=== PATIENT | male | born 1975 | race Caucasian/White ===

== ENCOUNTER 2024-02-14 13:40 | Inpatient (IN) | payer BC, SELFPAY ==
[2024-02-14 14:10] VITALS: BP 155/91; PULSE 91; RESP 18; TEMP 36.8; O2SAT 97; BMI 29.0
[2024-02-14 16:50] LABS: Bedside Glucose 168 mg/dL (74-106)
[2024-02-14] MEDS: Insulin Lispro 100 UNIT/ML INSULN.PEN SC ×2 (17:27→21:06)
[2024-02-14] MEDS: metFORMIN (XR) 500 MG Tablet 1000 MG PO (17:27)
[2024-02-14 18:00] VITALS: BP 163/92; PULSE 82; RESP 17; TEMP 36.9; O2SAT 99
--- NOTE | 2024-02-14 19:07 | HP.PCM_ITS ---
HPI - General General Date of Admission: 02/14/24 Date of Service: 02/15/24 Chief Complaint: Here for 3 hours daily rehabilitation. HPI Narrative CHRIS BAILEY, is a 49 Male who presents with followin02/06/2024 [facility] with Neurologic signs and symptoms. Left arm, Left leg weakness. Neurology noted lacunar stroke. Not TPA candidate. 02/06/2024 Admit [facility]. Order MRI brain, CTA head/neck, echo for stroke. PT/OT for RU. Increase Atorvastatin to 40mg qhs. CT brain showed lacunar infarct. Left upper extremity weakness, mild left lower extremity weakness. 02/08/2024 A1c 6.1%. MRI brain showed right parietal lobe infarct. Aspirin, Plavix, Statin, low dose Lovenox. PT/OT SNF. Echo shows patent foramen ovale. ACEI to improve blood pressure. 02/14/2024 Admit to [facility] with debility, here for 3 hours daily rehabilitation, strenghening, prior to discharge home with . [facility] Medical History (Updated 02/14/24 @ 19:[address] Giovanny Pérez MD) Diabetes mellitus Hyperlipidemia Stroke/cerebrovascular accident Hypertension Home Medications ?Medication ?Instructions ?Recorded ?Last Taken ?Type aspirin 81 mg tablet,delayed 81 mg PO DAILY heart 02/14/24 Unknown History release (Adult Low Dose Aspirin) atorvastatin 20 mg tablet 40 mg PO QHS cholesterol 02/14/24 Unknown History clopidogrel 75 mg tablet 75 mg PO DAILY stroke 02/14/24 Unknown History dapagliflozin propanediol 10 mg 10 mg PO DAILY dm 02/14/24 Unknown History tablet (Farxiga) lisinopril 10 mg tablet 20 mg PO DAILY bp 02/14/24 Unknown History metformin 500 mg tablet,extended 1,000 mg PO BID dm 02/14/24 Unknown History release 24 hr semaglutide 7 mg tablet (Rybelsus) 7 mg PO DAILY dm 02/14/24 Unknown History Allergy/AdvReac Type Severity Reaction Status Date / Time No Known Allergies Allergy Verified 02/14/24 14:55 Family History (Updated 02/14/24 @ 19:[address] Giovanny Pérez MD) Other Diabetes Hyperlipidemia, unspecified Hypertension Social History (Updated 02/14/24 @ 19:[address] Giovanny Pérez MD) household members: spouse Smoking Status: Never smoker alcohol intake: never substance use type: does not use ROS Constitutional Constitutional: Denies chills, fever(s) or weight gain ENT HEENT: Denies headache(s), nasal congestion or nasal discharge Cardiovascular Cardiovascular: Denies chest pain or palpitations Respiratory/Chest Respiratory/Chest: Denies cough, excessive phlegm production or shortness of breath with exertion Gastrointestinal Gastrointestinal: Denies abdominal pain, nausea or vomiting Genitourinary Genitourinary: Denies dysuria Musculoskeletal Musculoskeletal: Denies joint pain or joint swelling Integumentary Integumentary: Denies rash or wounds Neurologic Neurologic: Denies focal weakness, numbness or tingling Psychiatric Psychiatric: Denies anxiety, auditory hallucinations, depression, homicidal ideation or suicidal ideation Vital Signs Vital Signs Vital Signs: 02/14/24 14:10 02/14/24 18:00 Temperature 98.3 F 98.5 F Temperature Source Temporal Temporal Pulse Rate 91 82 Respiratory Rate 18 17 Blood Pressure 155/91 H 163/92 H Blood Pressure Mean 112 115 Blood Pressure Source Monitor Monitor Blood Pressure Position Semi-Fowlers Semi-Fowlers Blood Pressure Location Right Arm Right Arm Pulse Ox 97 99 Oxygen Delivery Method Room Air Room Air Weight Weight: 91.8 kg Body Mass Index (BMI) 29.0 Physical Exam Const alert General Appearance: cooperative HEENT normocephalic Eyes PERRL and EOMs intact bilaterally Neck supple, no JVD and no carotid bruits Resp normal respiratory effort, normal air movement and clear to auscultation bilaterally Cardio regular rate and regular rhythm GI normal to inspection, nondistended, normoactive bowel sounds, non-tender and non-distended Extremity normal capillary refill General Extremity: Negative for edema Skin no rashes or lesions noted General Skin Exam: no breakdown Neuro Neuro Narrative: Left hemiparesis. Psych affect normal Appearance: appropriate Results Lab / Micro Data 02/15/24 05:25 02/15/24 05:25 Labs: Laboratory Results - last 24 hr 02/14/24 16:12: POC Glucose 168 H Assessment & Plan Assessment/Plan (1) Debility: (2) Right-sided lacunar stroke: (3) Left hemiparesis: (4) Type 2 diabetes mellitus with hyperglycemia: (5) Diabetic polyneuropathy: (6) Essential (primary) hypertension: (7) Hyperlipidemia: PLAN: Plan 49 year old male with below past medical history hospitalized for right parietal stroke, left hemiparesis, admitted to with debility, here for 3 hours daily rehabilitation, strengthening, prior to discharge home with . * Debility - PT/OT/ST. * Pain - Tylenol 1000mg q6 prn. * Bowel - senna/colace 2 tablets bid, Dulcolax 10mg pr x1 prn, MOM 30ml po x 1 prn. * DVT prophylaxis - Lovenox 40mg sc daily. * Stroke - Aspirin 81mg daily, Plavix 75mg daily. * Hyperlipidemia - Atorvastatin 40mg qhs. * Diabetes Mellitus II - Metformin XR 1000mg bidcm, Jardiance 25mg daily, Rybelsus 7mg daily, Lispro SSI. * Hypertension - Lisinopril 20mg daily. * Insomnia - Melatonin 3mg qhs prn.
[2024-02-14] MEDS: MELATONIN 3 MG TABLET PO (21:08)
[2024-02-14] MEDS: Atorvastatin Calcium 40 MG Tablet PO (21:08)
[2024-02-14 21:51] LABS: Bedside Glucose 220 mg/dL (74-106)
[2024-02-15 05:47] VITALS: BP 120/79; PULSE 83; RESP 16; TEMP 36.6; O2SAT 94
[2024-02-15 06:03] LABS: Hematocrit 38.7 % (40-54); Hemoglobin 13.3 g/dL (13.0-16.5); Mean Corp Hgb Conc 34.4 g/dL (32-36); Mean Corpuscular Hgb 29.6 pg (27.0-32.0); Mean Corpuscular Volume 86.2 fL (80-94); Mean Platelet Vol. 9.8 fl (6.2-12.0); Platelet Count 214 K/mm3 (150-450); Red Blood Count 4.49 M/mm3 (4.6-6.2); White Blood Count 6.6 K/mm3 (4.4-11.0)
[2024-02-15 06:29] LABS: ALB/GLOB Ratio 1.1 RATIO (0.9-2.4); AST(SGOT) 33 U/L (15-37); Alanine Aminotransfer ALT/SGPT 67 U/L (16-61); Albumin, Serum 3.7 g/dL (3.2-5.0); Alkaline Phosphatase 68 U/L (45-117); Anion Gap 5 (5-15); BUN 25 mg/dL (7-18); BUN/Creat Ratio 23.8 RATIO (10-20); Calcium,Total 9.4 mg/dL (8.5-10.1); Chloride 104 mmol/L (98-107); Creatinine, Serum 1.05 mg/dL (0.70-1.30); EST Glomerular Filtration Rate 79 mL/min (>60); Est Glom Filt Rate - Afr Amer 96 mL/min (>60); Estimated Creatinine Clearance 94.79 ml/min; Globulin 3.4 g/dL (2.2-4.2); Glucose 179 mg/dL (74-106); Magnesium 2.6 mg/dL (1.6-2.6); Phosphorus 4.8 mg/dL (2.5-4.9); Potassium 4.2 mmol/L (3.5-5.1); Protein, Total 7.1 g/dL (6.4-8.2); Sodium Level 136 mmol/L (136-145)
[2024-02-15] MEDS: Enoxaparin 40 MG/0.4 ML Syringe SC (06:38)
[2024-02-15] MEDS: Insulin Lispro 100 UNIT/ML INSULN.PEN SC ×4 (06:39→21:53)
[2024-02-15 07:03] LABS: Bedside Glucose 168 mg/dL (74-106)
[2024-02-15] MEDS: metFORMIN (XR) 500 MG Tablet 1000 MG PO ×2 (08:28→17:01)
[2024-02-15] MEDS: Lisinopril 20 MG Tablet PO (08:28)
[2024-02-15] MEDS: Senna/Docusate Sodium 1 Tablet 2 TABLET PO (08:28)
[2024-02-15] MEDS: Empagliflozin 25 MG Tablet PO (08:28)
[2024-02-15] MEDS: Clopidogrel Bisulfate 75 MG Tablet PO (08:28)
[2024-02-15] MEDS: Aspirin E.C. 81 MG Tablet PO (08:28)
[2024-02-15 11:34] LABS: Bedside Glucose 182 mg/dL (74-106)
[2024-02-15 17:19] VITALS: BP 128/80; PULSE 89; RESP 16; TEMP 36.7; O2SAT 94
[2024-02-15 17:22] LABS: Bedside Glucose 150 mg/dL (74-106)
--- NOTE | 2024-02-15 20:16 | PCM.RU.PYE ---
Admission Information Primary Diagnosis:: Stroke. Status Changes from Prescreening?: No changes Identified Actual Problem List:: Mobility Impaired, Self Care Deficit, Ineffective Communication, Know.Dfct/Disease Process, Diabetes, Hyperglycemia and Alteration-Leisure Activ. Potential Problem List:: DVT, Bleeding, Infection, UTI, Aspiration, Falls, Skin Integrity and Depression Risk of Complications DVT: LMWH Bleeding: Monitor Lab Values, Nursing to Teach Precautions for anti-coagulation therapy., Wound, if applicable, to be assessed every shift. and Stroke patients assessed for lethargy or change in status. Infection: Clinical Staff to Monitor for S/S of infection: and S/S of infection include fever, redness, warmth, etc. Urinary Tract Infection: Monitor for frequency, burning, discomfort, or incontinence. and Nursing will obtain urine sample for urinalysis and C&S when ordered. Aspiration: Clinical staff will monitor for coughing, drooling, congestion., Speech will evaluate swallowing and dsyphasia. and Nursing will monitor patient swallowing during meals. Falls: Patient will be evaluated for Fall Precautions and Patient will be placed on Fall Precautions as indicated per protocol. Skin Breakdown: Nursing will assess skin daily using assessment tool. and Nursing will place on Skin Breakdown Precautions as indicated. Pain: Clinical staff will assess patient's pain level per protocol., Medications will be given, if needed, and the pain level reassessed. and Other methods: Massage, distraction, decrease stimulus, etc. used PRN. Plan of Care Patient requires physician specializing in physical medicine and rehab oversight to provide close medical supervision of rehab issues including: Pain Management, Sleep Problems, Bowel and Bladder, Medical and co-morbidity Management, DVT prophylaxis, Rehabilitation Leadership and Coordination of treatment team Patient needs Physical Therapy: For a minimum of 1 hour and At least 5 out of 7 days Patient needs Physical Therapy to improve:: Mobility, Strengthening, Transfers, Stretching, ROM, Endurance, Stairs, Gait and Balance Patient needs Occupational Therapy: For a minimum of 1 hour and At least 5 out of 7 days Patient needs Occupational Therapy to improve ADL's incl.: Eating, Grooming, Bathing, Dressing, Toileting, Toilet transfers, Community Reintegration, Higher functioning activities, Household tasks, Adaptive Equipment, Splinting and Other activities as determined Patient requires speech therapy: For a minimum of 1 hour and At least 5 out of 7 days Patient requires speech therapy for: Swallowing, Cognition, Language Skills and Compensatory Strategies Patient requires 24/7 Rehabilitation Nursing for: Pain Issues, Identifying and preventing risk factors, Monitoring and reporting current medical conditions, Assisting with ambulation, transfer, and all ADL's, Teaching patients about disease process and medications, Family teaching, Providing safe environment, Bowel and Bladder Issues, Skin integrity and Medication Management Patient needs All Source Intelligence Analyst/ Case Management for: Discharge Planning, Arranging Home Equipment or Services and Family Interventions Patient needs Dietary and Nutrition Services for: Adequate Nutrition, Nutritional Supplements and Nutritional Education Goals Goals Patient will remain: free from falls and or injury at time of discharge. Patient will ambulate: with MOD I assist and with LRD Patient will complete upper body dressing at: MOD I level of assist. Patient will complete lower body dressing at: MOD I level of assist. (with AE.) Patient will perform bathing at: MOD I level of assist. (with AE.) Patient will perform Tub/Shower transfer at: - (Sup.) Patient will complete grooming at: MOD I level of assist. Patient's skin will: remain intact and free from infection. Patient will receive: adequate nutrition. Discharge Planning Pt Prognosis for Sig. Practical Improv. w/in Reasonable Time: Good Estimated Length of stay (days): 21 Anticipated D/C Destination: Home with Outpt Therapy Was Preadmission Assessment Accurate?: Yes
[2024-02-15] MEDS: Atorvastatin Calcium 40 MG Tablet PO (20:40)
[2024-02-15] MEDS: Acetaminophen 325 MG Tablet 650 MG PO (20:47)
[2024-02-15] MEDS: MELATONIN 3 MG TABLET PO (20:47)
[2024-02-15 22:08] LABS: Bedside Glucose 177 mg/dL (74-106)
[2024-02-16 06:00] VITALS: BP 134/76; PULSE 88; RESP 16; TEMP 36.4; O2SAT 96
[2024-02-16] MEDS: Enoxaparin 40 MG/0.4 ML Syringe SC (06:11)
[2024-02-16 06:39] LABS: Bedside Glucose 125 mg/dL (74-106)
--- NOTE | 2024-02-16 08:18 | PN.REHAB_ITS ---
Subjective Subjective Patient seen, examined. Tyron in good spirits, has good appetite, he lives alone, but his daughter would be willing to move in for couple weeks to help him transition to home. His daughter lives in [place]. Objective Data Objective Data Vital Signs: Vital Signs Temp Pulse Resp BP Pulse Ox O2 Del Method 97.5 F L 88 16 134/76 H 96 Room Air 02/16/24 06:00 02/16/24 06:00 02/16/24 06:00 02/16/24 06:00 02/16/24 06:00 02/16/24 07:12 Oxygen Delivery Method Room Air Weight: 91.8 kg Body Mass Index (BMI) 29.0 Intake & Output: Intake and Output for Last 24 Hours 02/14/24 02/15/24 02/16/24 23:59 23:59 23:59 Intake Total 540 / 540 1340 / 1340 Output Total 1250 / 1250 1500 / 1500 300 / 300 Balance -710 / -710 -160 / -160 -300 / -300 Lab / Micro Data 02/15/24 05:25 02/15/24 05:25 Labs: Laboratory Results - last 24 hr 02/15/24 11:13: POC Glucose 182 H 02/15/24 17:00: POC Glucose 150 H 02/15/24 21:50: POC Glucose 177 H 02/16/24 06:19: POC Glucose 125 H Indicators for Scoring Admitted with or Primary Diagnosis of CVA/Stroke: Yes Hx of CVA/Stroke: No Modified Hope Score MRS Score at time of Evaluation: 4-Moderate/severe disability Physical Exam Const alert General Appearance: cooperative HEENT normocephalic Eyes PERRL and EOMs intact bilaterally Neck supple, no JVD and no carotid bruits Resp normal respiratory effort, normal air movement and clear to auscultation bilaterally Cardio regular rate and regular rhythm GI normal to inspection, nondistended, normoactive bowel sounds, non-tender and non-distended Extremity normal capillary refill General Extremity: Negative for edema Skin no rashes or lesions noted General Skin Exam: no breakdown Neuro Neuro Narrative: Left hemiparesis. Psych affect normal Appearance: appropriate Assessment & Plan Assessment/Plan (1) Debility: (2) Right-sided lacunar stroke: (3) Left hemiparesis: (4) Type 2 diabetes mellitus with hyperglycemia: (5) Diabetic polyneuropathy: (6) Essential (primary) hypertension: (7) Hyperlipidemia: PLAN: Plan 49 year old male with below past medical history hospitalized for right parietal stroke, left hemiparesis, admitted to with debility, here for 3 hours daily rehabilitation, strengthening, prior to discharge home with . * Debility - PT/OT/ST. * Pain - Tylenol 1000mg q6 prn. * Bowel - senna/colace 2 tablets bid, Dulcolax 10mg pr x1 prn, MOM 30ml po x 1 prn. * DVT prophylaxis - Lovenox 40mg sc daily. * Stroke - Aspirin 81mg daily, Plavix 75mg daily. * Hyperlipidemia - Atorvastatin 40mg qhs. * Diabetes Mellitus II - Metformin XR 1000mg bidcm, Jardiance 25mg daily, Hold Rybelsus while on , Lispro SSI. * Hypertension - Lisinopril 20mg daily. * Insomnia - Melatonin 3mg qhs prn.
[2024-02-16] MEDS: Empagliflozin 25 MG Tablet PO (08:33)
[2024-02-16] MEDS: metFORMIN (XR) 500 MG Tablet 1000 MG PO ×2 (08:33→16:41)
[2024-02-16] MEDS: Aspirin E.C. 81 MG Tablet PO (08:33)
[2024-02-16] MEDS: Clopidogrel Bisulfate 75 MG Tablet PO (08:34)
[2024-02-16] MEDS: Lisinopril 20 MG Tablet PO (08:34)
[2024-02-16 11:52] LABS: Bedside Glucose 163 mg/dL (74-106)
[2024-02-16] MEDS: Insulin Lispro 100 UNIT/ML INSULN.PEN SC (11:56)
--- NOTE | 2024-02-16 15:14 | CHAPLAIN ---
Type of Pastoral Visit _x__ Initial Visit ___ Follow-up Visit ___ On-call Visit ___ General Patient Visit ___ Spiritual Assessment ___ Family Conference ___ Bereavement ___ Rapid Response ___ Code Blue ___ Other (describe below) Pastoral Care Referral From _x__ Patient ___ Family ___ Nurse ___ Physician ___ Engineering Coordinator ___ Catalogue Maker ___ Other (describe below) Sacrament/Intervention _x__ Active listening ___ Anointing ___ Samaritan ___ Bereavement ___ Communion _x__ Yamileth exploration ___ _x__ Life review _x__ Prayer ___ Reconciliation ___ Sacrament of Sick _x__ Supportive presence ___ Wedding ___ Other (describe below) Pastoral Comments patient was finishing some therapy and this information consultant returned when he was completed with that; pt is sitting up in bed and expresses the difficulty of being in the bed for over a week; pt gives some life review; pt explains his desire to be working instead and able to go outside and walk without a helper; pt admits that this weekend was emotionally hard for him; pt states as well that he is hopeful for a full recovery and that he has support from family and quaker; the patient's quaker and manager oracle are at a distance away and so he welcomes spiritual care from this information consultant and would like future visits; prayer and presence welcomed
[2024-02-16 16:40] LABS: Bedside Glucose 111 mg/dL (74-106)
[2024-02-16 18:00] VITALS: BP 139/85; PULSE 96; RESP 17; TEMP 36.9; O2SAT 97
[2024-02-16] MEDS: Atorvastatin Calcium 40 MG Tablet PO (21:36)
[2024-02-16 21:56] LABS: Bedside Glucose 116 mg/dL (74-106)
[2024-02-17] MEDS: Enoxaparin 40 MG/0.4 ML Syringe SC (05:34)
[2024-02-17 05:37] VITALS: BP 147/94; PULSE 91; RESP 17; TEMP 36.6; O2SAT 96
[2024-02-17 06:08] LABS: Bedside Glucose 156 mg/dL (74-106)
[2024-02-17] MEDS: Aspirin E.C. 81 MG Tablet PO (08:03)
[2024-02-17] MEDS: Empagliflozin 25 MG Tablet PO (08:03)
[2024-02-17] MEDS: Lisinopril 20 MG Tablet PO (08:03)
[2024-02-17] MEDS: Clopidogrel Bisulfate 75 MG Tablet PO (08:03)
[2024-02-17] MEDS: Insulin Lispro 100 UNIT/ML INSULN.PEN SC ×4 (08:03→20:10)
--- NOTE | 2024-02-17 08:26 | PN.REHAB_ITS ---
Subjective Subjective Patient seen, examined. Patient wished he had more sleep last night, but no trouble falling asleep. He has no new problems, concerns, issues, complaints. Objective Data Objective Data Vital Signs: Vital Signs Temp Pulse Resp BP Pulse Ox O2 Del Method 97.8 F 91 17 147/94 H 96 Room Air 02/17/24 05:37 02/17/24 05:37 02/17/24 05:37 02/17/24 05:37 02/17/24 05:37 02/17/24 05:37 Oxygen Delivery Method Room Air Weight: 91.8 kg Body Mass Index (BMI) 29.0 Intake & Output: Intake and Output for Last 24 Hours 02/15/24 02/16/24 02/17/24 23:59 23:59 23:59 Intake Total 1340 / 1340 1340 / 1580 480 / 480 Output Total 1500 / 1500 1550 / 1550 Balance -160 / -160 -210 / 30 480 / 480 Lab / Micro Data 02/15/24 05:25 02/15/24 05:25 Labs: Laboratory Results - last 24 hr 02/16/24 11:34: POC Glucose 163 H 02/16/24 16:19: POC Glucose 111 H 02/16/24 21:35: POC Glucose 116 H 02/17/24 05:35: POC Glucose 156 H Indicators for Scoring Admitted with or Primary Diagnosis of CVA/Stroke: Yes Hx of CVA/Stroke: No Modified Wright Score MRS Score at time of Evaluation: 4-Moderate/severe disability Physical Exam Const alert General Appearance: cooperative HEENT normocephalic Eyes PERRL and EOMs intact bilaterally Neck supple, no JVD and no carotid bruits Resp normal respiratory effort, normal air movement and clear to auscultation bilaterally Cardio regular rate and regular rhythm GI normal to inspection, nondistended, normoactive bowel sounds, non-tender and non-distended Extremity normal capillary refill General Extremity: Negative for edema Skin no rashes or lesions noted General Skin Exam: no breakdown Neuro Neuro Narrative: Left hemiparesis. Psych affect normal Appearance: appropriate Assessment & Plan Assessment/Plan (1) Debility: (2) Right-sided lacunar stroke: (3) Left hemiparesis: (4) Type 2 diabetes mellitus with hyperglycemia: (5) Diabetic polyneuropathy: (6) Essential (primary) hypertension: (7) Hyperlipidemia: PLAN: Plan 49 year old male with below past medical history hospitalized for right parietal stroke, left hemiparesis, admitted to with debility, here for 3 hours daily rehabilitation, strengthening, prior to discharge home with . * Debility - PT/OT/ST. * Pain - Tylenol 1000mg q6 prn. * Bowel - senna/colace 2 tablets bid, Dulcolax 10mg pr x1 prn, MOM 30ml po x 1 prn. * DVT prophylaxis - Lovenox 40mg sc daily. * Stroke - Aspirin 81mg daily, Plavix 75mg daily. * Hyperlipidemia - Atorvastatin 40mg qhs. * Diabetes Mellitus II - Metformin XR 1000mg bidcm, Jardiance 25mg daily, Hold Rybelsus while on , Lispro SSI. * Hypertension - Lisinopril 20mg daily. * Insomnia - Melatonin 3mg qhs prn.
[2024-02-17 11:00] VITALS: O2SAT 96
[2024-02-17 11:25] LABS: Bedside Glucose 193 mg/dL (74-106)
[2024-02-17] MEDS: metFORMIN (XR) 500 MG Tablet 1000 MG PO (17:23)
[2024-02-17 17:24] LABS: Bedside Glucose 151 mg/dL (74-106)
[2024-02-17 17:57] VITALS: BP 127/79; PULSE 99; RESP 16; TEMP 37; O2SAT 97
[2024-02-17 20:00] VITALS: PULSE 99; RESP 16; O2SAT 97
[2024-02-17] MEDS: Atorvastatin Calcium 40 MG Tablet PO (20:11)
[2024-02-17 20:35] LABS: Bedside Glucose 163 mg/dL (74-106)
[2024-02-18 00:11] VITALS: BMI 29.0
[2024-02-18] MEDS: Enoxaparin 40 MG/0.4 ML Syringe SC (06:28)
[2024-02-18] MEDS: Insulin Lispro 100 UNIT/ML INSULN.PEN SC ×3 (06:33→21:18)
[2024-02-18 06:48] VITALS: BP 136/83; PULSE 87; RESP 16; TEMP 36.6; O2SAT 96
[2024-02-18 07:02] LABS: Bedside Glucose 156 mg/dL (74-106)
[2024-02-18 08:03] VITALS: O2SAT 98
--- NOTE | 2024-02-18 08:52 | CASEMGMT ---
Social Work IDT met with patient and conference call with for Team meeting. Discussed patient's progress in PT/OT/SN. Educated to [facility] insurance with [employer] 02/17 and continued stay is not guaranteed with each review. Therapy noted pt's left side weakness, the need for a quad cane d/t balance, and the increased fatigue with therapy. Pt was mod I, working full-time prior. Pt's goal is continue with intensive therapy to optimize recovery. Pt will be returning home alone and has steps to second floor where his home office is located. Pt will need a quad cane and continued therapy at [place]. SW will continue to follow for DC planning. HADLEY Landry
[2024-02-18] MEDS: Lisinopril 20 MG Tablet PO (09:57)
[2024-02-18] MEDS: Empagliflozin 25 MG Tablet PO (09:57)
[2024-02-18] MEDS: Aspirin E.C. 81 MG Tablet PO (09:57)
[2024-02-18] MEDS: metFORMIN (XR) 500 MG Tablet 1000 MG PO ×2 (09:57→17:41)
[2024-02-18] MEDS: Clopidogrel Bisulfate 75 MG Tablet PO (09:57)
[2024-02-18 11:33] LABS: Bedside Glucose 204 mg/dL (74-106)
[2024-02-18 13:40] VITALS: BMI 29.0
[2024-02-18 16:59] LABS: Bedside Glucose 112 mg/dL (74-106)
[2024-02-18 18:00] VITALS: BP 124/80; PULSE 95; RESP 19; TEMP 36.6; O2SAT 95
[2024-02-18 21:00] VITALS: PULSE 95; RESP 19; O2SAT 95; BMI 29.0
[2024-02-18] MEDS: Atorvastatin Calcium 40 MG Tablet PO (21:19)
[2024-02-18 21:48] LABS: Bedside Glucose 169 mg/dL (74-106)
--- NOTE | 2024-02-19 01:37 | NURSING ---
Reviewed and agree with Rodolfo LY, documentation and assessment charting.
[2024-02-19 06:00] VITALS: BP 149/89; PULSE 89; RESP 16; TEMP 37; O2SAT 95; BMI 28.7
[2024-02-19] MEDS: Enoxaparin 40 MG/0.4 ML Syringe SC (06:19)
[2024-02-19] MEDS: Acetaminophen 325 MG Tablet 650 MG PO (06:19)
[2024-02-19] MEDS: Insulin Lispro 100 UNIT/ML INSULN.PEN SC ×3 (06:25→21:34)
[2024-02-19 06:45] LABS: Bedside Glucose 192 mg/dL (74-106)
[2024-02-19] MEDS: Aspirin E.C. 81 MG Tablet PO (09:02)
[2024-02-19] MEDS: Empagliflozin 25 MG Tablet PO (09:02)
[2024-02-19] MEDS: metFORMIN (XR) 500 MG Tablet 1000 MG PO ×2 (09:02→17:04)
[2024-02-19] MEDS: Clopidogrel Bisulfate 75 MG Tablet PO (09:02)
[2024-02-19] MEDS: Lisinopril 20 MG Tablet PO (09:03)
[2024-02-19 12:13] LABS: Bedside Glucose 181 mg/dL (74-106)
[2024-02-19 13:29] VITALS: BMI 28.7
--- NOTE | 2024-02-19 14:07 | CASEMGMT ---
Social Work SW updated pt that insurance approved with [employer] 02/24, and reviewer stated they will provide pt with advanced notice. Pt appreciative and will notify . Yoli Albert, CLINIC CMA LAN ADMINISTRATOR
--- NOTE | 2024-02-19 14:16 | CHAPLAIN ---
Type of Pastoral Visit ___ Initial Visit _x__ Follow-up Visit ___ On-call Visit ___ General Patient Visit ___ Spiritual Assessment ___ Family Conference ___ Bereavement ___ Rapid Response ___ Code Blue ___ Other (describe below) Pastoral Care Referral From _x__ Patient ___ Family ___ Nurse ___ Physician ___ Nutritionist Public Health ___ Tractor Driver ___ Other (describe below) Sacrament/Intervention _x__ Active listening ___ Anointing ___ Protestant ___ Bereavement ___ Communion ___ Yamileth exploration ___ ___ Life review _x__ Prayer ___ Reconciliation ___ Sacrament of Sick _x__ Supportive presence ___ Wedding ___ Other (describe below) Pastoral Comments follow up as requested by patient earlier this week; pt states that he is pretty tired from the therapies today and that he still has one more session to go yet; pt says that there is some improvement over the days and this is encouraging him for future progress; pt welcomes someone to talk with and the conversation is casual about life and interests; visit was kept short due to pt wanting to rest before his next therapy session; prayer is welcomed as is the brief visit
[2024-02-19 17:18] LABS: Bedside Glucose 110 mg/dL (74-106)
[2024-02-19 18:00] VITALS: BP 125/81; PULSE 96; RESP 15; TEMP 36.4; O2SAT 97
[2024-02-19 21:15] LABS: Bedside Glucose 153 mg/dL (74-106)
[2024-02-19] MEDS: Atorvastatin Calcium 40 MG Tablet PO (21:34)
[2024-02-19 22:00] VITALS: PULSE 96; RESP 15; O2SAT 97
[2024-02-19 23:32] VITALS: BMI 28.7
[2024-02-20] MEDS: Enoxaparin 40 MG/0.4 ML Syringe SC (05:59)
[2024-02-20 06:00] VITALS: BP 128/83; PULSE 98; RESP 16; TEMP 37.2; O2SAT 96
[2024-02-20 06:34] LABS: Bedside Glucose 162 mg/dL (74-106)
[2024-02-20] MEDS: Aspirin E.C. 81 MG Tablet PO (07:56)
[2024-02-20] MEDS: Insulin Lispro 100 UNIT/ML INSULN.PEN SC ×3 (07:56→22:29)
[2024-02-20] MEDS: metFORMIN (XR) 500 MG Tablet 1000 MG PO ×2 (07:56→17:23)
[2024-02-20] MEDS: Atorvastatin Calcium 40 MG Tablet PO (07:57)
[2024-02-20] MEDS: Clopidogrel Bisulfate 75 MG Tablet PO (07:57)
[2024-02-20] MEDS: Empagliflozin 25 MG Tablet PO (07:57)
[2024-02-20] MEDS: Lisinopril 20 MG Tablet PO (07:58)
[2024-02-20 12:09] LABS: Bedside Glucose 147 mg/dL (74-106)
[2024-02-20 12:23] VITALS: BMI 28.7
[2024-02-20 16:46] LABS: Bedside Glucose 174 mg/dL (74-106)
[2024-02-20 17:29] VITALS: BP 130/82; PULSE 94; RESP 15; TEMP 37; O2SAT 100
[2024-02-20 21:39] LABS: Bedside Glucose 161 mg/dL (74-106)
[2024-02-21 05:00] VITALS: BMI 28.7
[2024-02-21 06:00] VITALS: BP 129/85; PULSE 80; RESP 18; TEMP 36.7; O2SAT 100
[2024-02-21] MEDS: Enoxaparin 40 MG/0.4 ML Syringe SC (06:36)
[2024-02-21 07:12] LABS: Bedside Glucose 148 mg/dL (74-106)
[2024-02-21] MEDS: Aspirin E.C. 81 MG Tablet PO (08:07)
[2024-02-21] MEDS: metFORMIN (XR) 500 MG Tablet 1000 MG PO ×2 (08:07→16:04)
[2024-02-21] MEDS: Clopidogrel Bisulfate 75 MG Tablet PO (08:08)
[2024-02-21] MEDS: Lisinopril 20 MG Tablet PO (08:08)
[2024-02-21] MEDS: Empagliflozin 25 MG Tablet PO (08:08)
[2024-02-21 09:18] VITALS: BMI 28.7
[2024-02-21 11:28] LABS: Bedside Glucose 159 mg/dL (74-106)
[2024-02-21] MEDS: Insulin Lispro 100 UNIT/ML INSULN.PEN SC ×3 (12:01→21:00)
[2024-02-21 16:35] LABS: Bedside Glucose 162 mg/dL (74-106)
[2024-02-21 17:47] VITALS: BP 142/80; PULSE 80; RESP 16; TEMP 36.9; O2SAT 98
[2024-02-21] MEDS: Atorvastatin Calcium 40 MG Tablet PO (20:56)
[2024-02-21 21:15] VITALS: BMI 28.7
[2024-02-21 21:21] LABS: Bedside Glucose 217 mg/dL (74-106)
[2024-02-22] MEDS: Enoxaparin 40 MG/0.4 ML Syringe SC (05:58)
[2024-02-22 06:00] VITALS: BP 136/88; PULSE 85; RESP 17; TEMP 36.6; O2SAT 97
[2024-02-22 07:04] LABS: Bedside Glucose 178 mg/dL (74-106)
--- NOTE | 2024-02-22 07:49 | PN.REHAB_ITS ---
Subjective Subjective Patient seen, examined. He is in good spirits, good appetite, no pain. He has no new problems, concerns, issues, complaints. Objective Data Objective Data Vital Signs: Vital Signs Temp Pulse Resp BP Pulse Ox O2 Del Method 97.9 F 85 17 136/88 H 97 Room Air 02/22/24 06:00 02/22/24 06:00 02/22/24 06:00 02/22/24 06:00 02/22/24 06:00 02/22/24 06:00 Oxygen Delivery Method Room Air Weight: 90.9 kg Body Mass Index (BMI) 28.7 Intake & Output: Intake and Output for Last 24 Hours 02/20/24 02/21/24 02/22/24 23:59 23:59 23:59 Intake Total 2370 / 2370 1290 / 1290 Output Total 1500 / 1500 900 / 900 300 / 300 Balance 870 / 870 390 / 390 -300 / -300 Lab / Micro Data 02/15/24 05:25 02/15/24 05:25 Labs: Laboratory Results - last 24 hr 02/21/24 11:09: POC Glucose 159 H 02/21/24 16:06: POC Glucose 162 H 02/21/24 20:59: POC Glucose 217 H 02/22/24 06:45: POC Glucose 178 H Indicators for Scoring Admitted with or Primary Diagnosis of CVA/Stroke: Yes Hx of CVA/Stroke: Yes Modified Stovall Score MRS Score at time of Evaluation: 4-Moderate/severe disability Physical Exam Const alert General Appearance: cooperative HEENT normocephalic Eyes PERRL and EOMs intact bilaterally Neck supple, no JVD and no carotid bruits Resp normal respiratory effort, normal air movement and clear to auscultation bilaterally Cardio regular rate and regular rhythm GI normal to inspection, nondistended, normoactive bowel sounds, non-tender and non-distended Extremity normal capillary refill General Extremity: Negative for edema Skin no rashes or lesions noted General Skin Exam: no breakdown Neuro Neuro Narrative: Left hemiparesis. Psych affect normal Appearance: appropriate Assessment & Plan Assessment/Plan (1) Debility: (2) Right-sided lacunar stroke: (3) Left hemiparesis: (4) Type 2 diabetes mellitus with hyperglycemia: (5) Diabetic polyneuropathy: (6) Essential (primary) hypertension: (7) Hyperlipidemia: PLAN: Plan 49 year old male with below past medical history hospitalized for right parietal stroke, left hemiparesis, admitted to with debility, here for 3 hours daily rehabilitation, strengthening, prior to discharge home with . * Debility - PT/OT/ST. * Pain - Tylenol 1000mg q6 prn. * Bowel - senna/colace 2 tablets bid, Dulcolax 10mg pr x1 prn, MOM 30ml po x 1 prn. * DVT prophylaxis - Lovenox 40mg sc daily. * Stroke - Aspirin 81mg daily, Plavix 75mg daily. * Hyperlipidemia - Atorvastatin 40mg qhs. * Diabetes Mellitus II - Metformin XR 1000mg bidcm, Jardiance 25mg daily, Hold Rybelsus while on , Lispro SSI. * Hypertension - Lisinopril 20mg daily. * Insomnia - Melatonin 3mg qhs prn.
[2024-02-22] MEDS: Empagliflozin 25 MG Tablet PO (07:56)
[2024-02-22] MEDS: Lisinopril 20 MG Tablet PO (07:56)
[2024-02-22] MEDS: Insulin Lispro 100 UNIT/ML INSULN.PEN SC ×2 (07:57→13:00)
[2024-02-22] MEDS: Aspirin E.C. 81 MG Tablet PO (07:57)
[2024-02-22] MEDS: Clopidogrel Bisulfate 75 MG Tablet PO (07:57)
[2024-02-22] MEDS: metFORMIN (XR) 500 MG Tablet 1000 MG PO ×2 (07:57→17:56)
[2024-02-22 11:17] LABS: Bedside Glucose 169 mg/dL (74-106)
[2024-02-22 16:20] LABS: Bedside Glucose 118 mg/dL (74-106)
[2024-02-22 17:00] VITALS: BMI 28.7
[2024-02-22 17:57] VITALS: BP 132/81; PULSE 100; RESP 16; TEMP 37; O2SAT 97
[2024-02-22 19:33] VITALS: BMI 28.7
[2024-02-22] MEDS: Atorvastatin Calcium 40 MG Tablet PO (19:50)
[2024-02-22 20:43] VITALS: PULSE 86; RESP 15; O2SAT 97
[2024-02-22 21:42] LABS: Bedside Glucose 148 mg/dL (74-106)
[2024-02-23] MEDS: Enoxaparin 40 MG/0.4 ML Syringe SC (05:13)
[2024-02-23 05:16] VITALS: BP 143/81; PULSE 90; RESP 16; TEMP 36.7; O2SAT 96
[2024-02-23 06:37] LABS: Bedside Glucose 140 mg/dL (74-106)
[2024-02-23] MEDS: Aspirin E.C. 81 MG Tablet PO (08:01)
[2024-02-23] MEDS: Lisinopril 20 MG Tablet PO (08:01)
[2024-02-23] MEDS: Clopidogrel Bisulfate 75 MG Tablet PO (08:01)
[2024-02-23] MEDS: Empagliflozin 25 MG Tablet PO (08:01)
[2024-02-23] MEDS: metFORMIN (XR) 500 MG Tablet 1000 MG PO ×2 (08:02→17:17)
--- NOTE | 2024-02-23 08:06 | PN.REHAB_ITS ---
Subjective Subjective Patient seen, examined. No acute events overnight, he has no new problems, concerns, issues, complaints. He continues to progress with therapy. Objective Data Objective Data Vital Signs: Vital Signs Temp Pulse Resp BP Pulse Ox O2 Del Method 98.0 F 90 16 143/81 H 96 Room Air 02/23/24 05:16 02/23/24 05:16 02/23/24 05:16 02/23/24 05:16 02/23/24 05:16 02/23/24 05:16 Oxygen Delivery Method Room Air Weight: 90.9 kg Body Mass Index (BMI) 28.7 Intake & Output: Intake and Output for Last 24 Hours 02/21/24 02/22/24 02/23/24 23:59 23:59 23:59 Intake Total 1290 / 1290 2380 / 2380 720 / 720 Output Total 900 / 900 1999 / 1999 850 / 850 Balance 390 / 390 380 / 380 -130 / -130 Lab / Micro Data 02/15/24 05:25 02/15/24 05:25 Labs: Laboratory Results - last 24 hr 02/22/24 10:59: POC Glucose 169 H 02/22/24 16:02: POC Glucose 118 H 02/22/24 21:22: POC Glucose 148 H 02/23/24 06:18: POC Glucose 140 H Indicators for Scoring Admitted with or Primary Diagnosis of CVA/Stroke: Yes Hx of CVA/Stroke: Yes Modified Lianne Score MRS Score at time of Evaluation: 4-Moderate/severe disability Physical Exam Const alert General Appearance: cooperative HEENT normocephalic Eyes PERRL and EOMs intact bilaterally Neck supple, no JVD and no carotid bruits Resp normal respiratory effort, normal air movement and clear to auscultation bilaterally Cardio regular rate and regular rhythm GI normal to inspection, nondistended, normoactive bowel sounds, non-tender and non-distended Extremity normal capillary refill General Extremity: Negative for edema Skin no rashes or lesions noted General Skin Exam: no breakdown Neuro Neuro Narrative: Left hemiparesis. Psych affect normal Appearance: appropriate Assessment & Plan Assessment/Plan (1) Debility: (2) Right-sided lacunar stroke: (3) Left hemiparesis: (4) Type 2 diabetes mellitus with hyperglycemia: (5) Diabetic polyneuropathy: (6) Essential (primary) hypertension: (7) Hyperlipidemia: PLAN: Plan 49 year old male with below past medical history hospitalized for right parietal stroke, left hemiparesis, admitted to with debility, here for 3 hours daily rehabilitation, strengthening, prior to discharge home with . * Debility - PT/OT/ST. * Pain - Tylenol 1000mg q6 prn. * Bowel - senna/colace 2 tablets bid, Dulcolax 10mg pr x1 prn, MOM 30ml po x 1 prn. * DVT prophylaxis - Lovenox 40mg sc daily. * Stroke - Aspirin 81mg daily, Plavix 75mg daily. * Hyperlipidemia - Atorvastatin 40mg qhs. * Diabetes Mellitus II - Metformin XR 1000mg bidcm, Jardiance 25mg daily, Hold Rybelsus while on , Lispro SSI. * Hypertension - Lisinopril 20mg daily. * Insomnia - Melatonin 3mg qhs prn.
[2024-02-23 11:42] LABS: Bedside Glucose 185 mg/dL (74-106)
[2024-02-23] MEDS: Insulin Lispro 100 UNIT/ML INSULN.PEN SC (11:59)
[2024-02-23 14:25] VITALS: BMI 28.7
[2024-02-23 17:10] VITALS: BP 148/85; PULSE 91; RESP 16; TEMP 36.9; O2SAT 99
[2024-02-23 18:09] LABS: Bedside Glucose 149 mg/dL (74-106)
[2024-02-23 19:26] VITALS: BMI 28.7
[2024-02-23 19:49] VITALS: PULSE 91; RESP 16; O2SAT 98
[2024-02-23] MEDS: Atorvastatin Calcium 40 MG Tablet PO (21:30)
[2024-02-23 22:18] LABS: Bedside Glucose 148 mg/dL (74-106)
[2024-02-24] MEDS: Enoxaparin 40 MG/0.4 ML Syringe SC (06:23)
[2024-02-24 06:31] VITALS: BP 141/92; PULSE 90; RESP 16; TEMP 36.8; O2SAT 95
[2024-02-24 06:48] LABS: Bedside Glucose 146 mg/dL (74-106)
[2024-02-24] MEDS: Aspirin E.C. 81 MG Tablet PO (07:39)
[2024-02-24] MEDS: Clopidogrel Bisulfate 75 MG Tablet PO (07:39)
[2024-02-24] MEDS: Empagliflozin 25 MG Tablet PO (07:39)
[2024-02-24] MEDS: metFORMIN (XR) 500 MG Tablet 1000 MG PO ×2 (07:39→16:45)
[2024-02-24] MEDS: Lisinopril 40 MG Tablet PO (08:30)
[2024-02-24 12:04] LABS: Bedside Glucose 138 mg/dL (74-106)
[2024-02-24 13:37] VITALS: BMI 28.7
[2024-02-24 17:06] LABS: Bedside Glucose 126 mg/dL (74-106)
[2024-02-24 17:25] VITALS: BP 139/84; PULSE 87; RESP 16; TEMP 36.4; O2SAT 97
[2024-02-24 21:15] VITALS: PULSE 87; RESP 16; O2SAT 97
[2024-02-24 21:23] VITALS: BMI 28.7
[2024-02-24] MEDS: Insulin Lispro 100 UNIT/ML INSULN.PEN SC (21:39)
[2024-02-24] MEDS: Atorvastatin Calcium 40 MG Tablet PO (21:39)
[2024-02-24 21:52] LABS: Bedside Glucose 158 mg/dL (74-106)
[2024-02-25] MEDS: Enoxaparin 40 MG/0.4 ML Syringe SC (06:40)
[2024-02-25 06:49] VITALS: BP 139/85; PULSE 78; RESP 16; TEMP 37; O2SAT 100
[2024-02-25 07:16] LABS: Bedside Glucose 144 mg/dL (74-106)
[2024-02-25] MEDS: Clopidogrel Bisulfate 75 MG Tablet PO (07:54)
[2024-02-25] MEDS: Empagliflozin 25 MG Tablet PO (07:54)
[2024-02-25] MEDS: Aspirin E.C. 81 MG Tablet PO (07:55)
[2024-02-25] MEDS: metFORMIN (XR) 500 MG Tablet 1000 MG PO ×2 (07:55→17:24)
[2024-02-25] MEDS: Lisinopril 40 MG Tablet PO (07:55)
--- NOTE | 2024-02-25 11:36 | PN_ITS ---
Subjective Subjective Afebrile VSS -blood pressure since 02/21/2024 has ranged from 132/81(x1) to 148/85. Antihypertensives include lisinopril 40 mg daily. Maintaining appropriate oxygen saturation on RA Oral intake - FOOD very good FLUIDS good Blood sugar record was reviewed. Blood sugars are generally well-controlled and mostly under 180. Blood sugars at noon are mildly increased and go up to 217. Discussed with nursing - no problems that need addressed Reviewed the THERAPY notes Medication list reviewed. Aspirin 81 mg a day, high intensity statin with atorvastatin 40 mg nightly, Plavix 75 mg daily ( has had 20 doses as of today) Admitted to rehab on 02/14/2024 for CVA. Presented to [facility] on 02/06/2024 with left arm and left leg weakness. CT already showed lacunar infarct and he was not a tPA candidate. CTA of the head neck showed no significant stenosis. MRI showed a right parietal lobe infarct. Echocardiogram showed a patent foramen ovale and asymmetric basal septal hypertrophy. No significant valvular heart dysfunction. Both atria were of normal size. No wall motion abnormalities. The proximal ascending aorta was mildly dilated at 3.9 cm. Past medical history is significant for diabetes mellitus type 2, hyperlipidemia, hypertension, overweight, diabetic polyneuropathy. Hemoglobin A1c at admission to [facility] was 6.1%. LDL at presentation to [facility] was 62 with an HDL of 32 and triglycerides of 178. He had been on a statin but the dose was increased to 40 mg of Lipitor daily while at [facility]. Objective Data Objective Data Vital Signs: Vital Signs Temp Pulse Resp BP Pulse Ox O2 Del Method 98.6 F 78 16 139/85 H 100 Room Air 02/25/24 06:49 02/25/24 06:49 02/25/24 06:49 02/25/24 06:49 02/25/24 06:49 02/25/24 06:49 Oxygen Delivery Method Room Air Weight: 200 lb 6.403 oz Body Mass Index (BMI) 28.7 Intake & Output: Intake and Output for Last 24 Hours 02/23/24 02/24/24 02/25/24 23:59 23:59 23:59 Intake Total 2360 / 2360 1540 / 1540 600 / 600 Output Total 850 / 850 900 / 900 Balance 1510 / 1510 640 / 640 600 / 600 Lab / Micro Data 02/15/24 05:25 02/15/24 05:25 Labs: Laboratory Results - last 24 hr 02/24/24 11:43: POC Glucose 138 H 02/24/24 16:47: POC Glucose 126 H 02/24/24 21:13: POC Glucose 158 H 02/25/24 06:43: POC Glucose 144 H Physical Exam Const alert, oriented x3 and no apparent distress General Appearance: cooperative HEENT normocephalic and moist oral mucous membranes HEENT Narrative: No thrush Eyes PERRL and EOMs intact bilaterally Eyes Narrative: No scleral icterus, no conjunctival injection, no discharge from the eyes. Neck No nuchal rigidity, No nodes and no carotid bruits General: trachea midline Resp normal respiratory effort, normal air movement and clear to auscultation bilaterally Cardio regular rate, regular rhythm, S1 normal heart sound, S2 normal heart sound, no murmurs, no rub and no gallops Cardio Narrative: No ectopy GI normal to inspection, nondistended, normoactive bowel sounds, soft to palpation, non-tender and non-distended GI Narrative: No guarding with palpation. Extremity no calf tenderness General Extremity: Negative for edema Skin General Skin Exam: no breakdown Rashes: no rashes Neuro Neuro Narrative: L hemiparesis. No facial droop appreciated. PERRLA, EOMI. No extinction. Psych thought process normal, cooperative and affect normal Assessment & Plan Assessment/Plan (1) Debility: (2) Right-sided lacunar stroke: (3) Left hemiparesis: (4) Diabetes mellitus, type 2: QUALIFIERS: Diabetes mellitus correction insulin use: without manager terminal use Diabetes mellitus complication status: with neurologic complications Diabetes mellitus complication detail: with polyneuropathy Qualified Code(s): E 11.42 - Type 2 diabetes mellitus with diabetic polyneuropathy (5) Hyperlipidemia: QUALIFIERS: Hyperlipidemia type: unspecified Qualified Code(s): E 78.5 - Hyperlipidemia, unspecified (6) Essential (primary) hypertension: (7) Diabetic polyneuropathy: QUALIFIERS: Diabetes mellitus type: type 2 Qualified Code(s): E 11.42 - Type 2 diabetes mellitus with diabetic polyneuropathy PLAN: Plan 1. Continue therapy 2. Needs a 30-day event monitor at discharge....ordered by [facility] and currently in place. He will follow-up with cardiology postdischarge. 3. Cardiology at [facility] recommended a transesophageal echocardiogram to better evaluate PFO. He can follow up with cardiology post DC to arrange this and closure of PFO if indicated. 4. Dc Plavix after 21 doses and continue ASA 81 mg daily 5. Needs a Liver profile and lipid profile in mid March since the Atorvastatin was increased to 40 mg daily. 6. He is ambulatory in his room with a straight cane now. No history of VTE so will discontinue Lovenox shots but continue AGUILAR hose. Check to see if he had US's of the legs at [facility] and/or W/U for hypercoagulable disorders. May need to request additional documentation.......I did not find in the records sent to us that he had venous US's or a hypercoagulable W/U. If the BP is still above goal in the AM will add Amlodipine to the drug regimen. Charges/Coding Visit Charges Inpatient E&M: 96918 [facility] Hosp L1
[2024-02-25 12:19] LABS: Bedside Glucose 204 mg/dL (74-106)
[2024-02-25] MEDS: Insulin Lispro 100 UNIT/ML INSULN.PEN SC ×2 (12:35→21:48)
[2024-02-25 12:51] VITALS: BMI 28.7
--- NOTE | 2024-02-25 13:01 | CASEMGMT ---
Addendum entered by Yoli Albert 02/25/24 15:41: SW updated pt that insurance approved with NRD 03/04. Original Note: Social Work IDT met with patient and conference call with for Team meeting. Discussed patient's progress in PT/OT/SN. Educated to [employer] insurance with NRD 02/24 and continued stay is not guaranteed with each review. IDT noted pt's improvement over the last week and is recommending continued therapy, if insurance allows, to optimize recovery to be able to return to work/independent lifestyle. Pt is agreeable to remain for continued therapy as he recognizes improvements and continued need for intensive therapy. Therapy plans to switch schedule to focus more on OT deficits, rather than PT. Pt agreed. SW confirmed pt would like OP therapy at [place]. Pt agreed, but requested to change location to somewhere in [place], which is closer to his home. SW provided pt with list of options; pt selected [facility]. SW to coordinate PT/OT at [place]. Will continue to follow. Yoli Albert ,REINSURANCE CLAIM ANALYST RECYCLING COORDINATOR
[2024-02-25 17:06] LABS: Bedside Glucose 135 mg/dL (74-106)
[2024-02-25 18:00] VITALS: BP 128/80; PULSE 76; RESP 76; TEMP 36; O2SAT 95
[2024-02-25 20:00] VITALS: PULSE 76; RESP 17; O2SAT 96; BMI 28.7
[2024-02-25] MEDS: Atorvastatin Calcium 40 MG Tablet PO (20:11)
[2024-02-25 22:09] LABS: Bedside Glucose 151 mg/dL (74-106)
[2024-02-26 06:00] VITALS: BP 134/88; PULSE 80; RESP 16; TEMP 36.4; O2SAT 96; BMI 28.6
[2024-02-26 06:57] LABS: Bedside Glucose 139 mg/dL (74-106)
[2024-02-26] MEDS: Empagliflozin 25 MG Tablet PO (07:53)
[2024-02-26] MEDS: Clopidogrel Bisulfate 75 MG Tablet PO (07:53)
[2024-02-26] MEDS: Aspirin E.C. 81 MG Tablet PO (07:53)
[2024-02-26] MEDS: metFORMIN (XR) 500 MG Tablet 1000 MG PO ×2 (07:53→17:29)
[2024-02-26] MEDS: Lisinopril 40 MG Tablet PO (07:54)
[2024-02-26 10:00] VITALS: PULSE 75; O2SAT 96
[2024-02-26] MEDS: Insulin Lispro 100 UNIT/ML INSULN.PEN SC (12:12)
[2024-02-26 12:17] LABS: Bedside Glucose 174 mg/dL (74-106)
[2024-02-26 15:22] VITALS: BMI 28.6
[2024-02-26 16:32] LABS: Bedside Glucose 104 mg/dL (74-106)
[2024-02-26 17:48] VITALS: BP 144/90; PULSE 89; RESP 16; TEMP 37.1; O2SAT 98
[2024-02-26] MEDS: Atorvastatin Calcium 40 MG Tablet PO (20:54)
[2024-02-26 21:18] LABS: Bedside Glucose 173 mg/dL (74-106)
[2024-02-27 03:43] VITALS: BMI 28.6
[2024-02-27 06:00] VITALS: BP 151/87; PULSE 78; RESP 16; TEMP 36.4; O2SAT 96
[2024-02-27 06:26] LABS: Bedside Glucose 139 mg/dL (74-106)
[2024-02-27] MEDS: amLODIPine 2.5 MG Tablet PO (08:04)
[2024-02-27] MEDS: Empagliflozin 25 MG Tablet PO (08:04)
[2024-02-27] MEDS: Lisinopril 40 MG Tablet PO (08:05)
[2024-02-27] MEDS: Aspirin E.C. 81 MG Tablet PO (08:05)
[2024-02-27] MEDS: metFORMIN (XR) 500 MG Tablet 1000 MG PO ×2 (08:06→16:56)
[2024-02-27 08:21] VITALS: BP 124/74; PULSE 81
[2024-02-27 12:07] LABS: Bedside Glucose 119 mg/dL (74-106)
[2024-02-27 13:32] VITALS: BMI 28.6
[2024-02-27 16:56] LABS: Bedside Glucose 122 mg/dL (74-106)
[2024-02-27 17:54] VITALS: BP 142/85; PULSE 81; RESP 17; TEMP 36.4; O2SAT 96
[2024-02-27] MEDS: Atorvastatin Calcium 40 MG Tablet PO (20:31)
[2024-02-27 21:24] LABS: Bedside Glucose 167 mg/dL (74-106)
[2024-02-28 02:14] VITALS: BMI 28.6
[2024-02-28 06:26] VITALS: BP 145/87; PULSE 74; RESP 18; TEMP 36.6; O2SAT 97
[2024-02-28 06:55] LABS: Bedside Glucose 136 mg/dL (74-106)
[2024-02-28 09:34] VITALS: BP 138/88; PULSE 82; RESP 18; O2SAT 100
[2024-02-28] MEDS: Empagliflozin 25 MG Tablet PO (09:36)
[2024-02-28] MEDS: metFORMIN (XR) 500 MG Tablet 1000 MG PO ×2 (09:36→17:15)
[2024-02-28] MEDS: Lisinopril 40 MG Tablet PO (09:36)
[2024-02-28] MEDS: Aspirin E.C. 81 MG Tablet PO (09:36)
[2024-02-28] MEDS: amLODIPine 2.5 MG Tablet PO (09:36)
[2024-02-28 11:35] LABS: Bedside Glucose 162 mg/dL (74-106)
[2024-02-28 15:53] VITALS: BMI 28.6
[2024-02-28 16:45] LABS: Bedside Glucose 157 mg/dL (74-106)
[2024-02-28 18:00] VITALS: BP 123/68; PULSE 72; RESP 17; TEMP 36
[2024-02-28] MEDS: Atorvastatin Calcium 40 MG Tablet PO (20:00)
[2024-02-28 21:06] VITALS: BMI 28.6
[2024-02-29 05:53] VITALS: BP 151/85; PULSE 74; RESP 18; TEMP 37; O2SAT 97
--- NOTE | 2024-02-29 08:21 | PN_ITS ---
Subjective Subjective Afebrile VSS -heart rate is within normal limits. Blood pressure over the past 24 hours has ranged from 123/68 to 161/85. Amlodipine 2.5 mg daily was added to the drug regimen starting Thursday. Maintaining appropriate oxygen saturation on RA Oral intake - FOOD good FLUIDS good Discussed with nursing - no problems that need addressed Reviewed the THERAPY notes Medication list reviewed. Has not slept well the past few nights. Has a lot on his mind and can not turn his brain off. He tells me he feels as though he is depressed. Affect is flat. Denies chest pain, lightheadedness, cephalgia, shortness of breath, cough, nausea/vomiting/abdominal pain, calf pain and dysuria. Tells me that he has not had ultrasounds of his lower extremities since having the stroke. To his knowledge he is also not aware of having a hypercoagulable workup. He is c/o some cramping in the R calf.........denies pain with compression of the calf. Objective Data Objective Data Vital Signs: Vital Signs Temp Pulse Resp BP Pulse Ox O2 Del Method 98.6 F 74 18 151/85 H 97 Room Air 02/29/24 05:53 02/29/24 05:53 02/29/24 05:53 02/29/24 05:53 02/29/24 05:53 02/29/24 05:53 Oxygen Delivery Method Room Air Weight: 199 lb 11.821 oz Body Mass Index (BMI) 28.6 Intake & Output: Intake and Output for Last 24 Hours 02/27/24 02/28/24 02/29/24 23:59 23:59 23:59 Intake Total 2070 / 2070 2770 / 2770 100 / 100 Output Total 900 / 900 900 / 900 300 / 300 Balance 1170 / 1170 1870 / 1870 -200 / -200 Lab / Micro Data 02/15/24 05:25 02/15/24 05:25 Labs: Laboratory Results - last 24 hr 02/28/24 11:13: POC Glucose 162 H 02/28/24 16:26: POC Glucose 157 H Physical Exam Const alert, oriented x3 and no apparent distress General Appearance: cooperative Resp normal respiratory effort, normal air movement and clear to auscultation bilaterally Cardio regular rate, regular rhythm, no murmurs, no rub and no gallops Cardio Narrative: No ectopy GI normal to inspection, nondistended, normoactive bowel sounds, soft to palpation, non-tender and non-distended GI Narrative: No guarding with palpation. Extremity Extremity Narrative: no pain with palpation of the calves. No ankle edema. Mariel redness and no increased warmth to touch of the calves. General Extremity: Negative for edema Skin General Skin Exam: no breakdown Rashes: no rashes Neuro Neuro Narrative: L hemiparesis. No facial droop appreciated. PERRLA, EOMI. No extinction. Psych thought process normal and cooperative Mood & Affect: depressed and flat affect Assessment & Plan Assessment/Plan (1) Debility: (2) Right-sided lacunar stroke: (3) Left hemiparesis: (4) Diabetes mellitus, type 2: QUALIFIERS: Diabetes mellitus assisted insulin use: without assisted use Diabetes mellitus complication status: with neurologic complications Diabetes mellitus complication detail: with polyneuropathy Qualified Code(s): E 11.42 - Type 2 diabetes mellitus with diabetic polyneuropathy (5) Hyperlipidemia: QUALIFIERS: Hyperlipidemia type: unspecified Qualified Code(s): E 78.5 - Hyperlipidemia, unspecified (6) Essential (primary) hypertension: (7) Diabetic polyneuropathy: QUALIFIERS: Diabetes mellitus type: type 2 Qualified Code(s): E 11.42 - Type 2 diabetes mellitus with diabetic polyneuropathy (8) Depression as late effect of cerebrovascular accident (CVA): (9) Right calf pain: PLAN: Plan 1. Continue therapy 2. No change to the drug regimen today -continue to monitor blood pressure closely and if by Thursday it is not within goal will go up on the amlodipine. 3. BMP, MAG and CBC in the a.m. 4. FMLA papers completed. 5. start Remeron 15 mg at HS. 6. BL venous US of legs since he is c/o R calf spasms 7. Defer hypercoagulable W/U to OP. Has an event monitor on. Charges/Coding Visit Charges Inpatient E&M: 39733 Subs Hosp L1
[2024-02-29] MEDS: Aspirin E.C. 81 MG Tablet PO (09:17)
[2024-02-29] MEDS: Lisinopril 40 MG Tablet PO (09:17)
[2024-02-29] MEDS: metFORMIN (XR) 500 MG Tablet 1000 MG PO ×2 (09:17→17:15)
[2024-02-29] MEDS: amLODIPine 2.5 MG Tablet PO (09:18)
[2024-02-29] MEDS: Empagliflozin 25 MG Tablet PO (09:35)
[2024-02-29 10:12] VITALS: BMI 28.6
--- NOTE | 2024-02-29 10:31 | VDLE_ITS ---
Reason For Study: Stroke in patient with PFO RIGHT LEFT GSV is normal. GSV is normal. CFV is compressible, spontaneous, phasic, CFV is compressible, spontaneous, phasic, competent and demonstrates normal competent, and demonstrates normal augmentation. augmentation. FV is compressible, spontaneous, phasic, FV is compressible, spontaneous, phasic, competent and demonstrates normal competent and demonstrates normal augmentation. augmentation. POP V is compressible, spontaneous, phasic, POP V is compressible, spontaneous, phasic, competent and demonstrates normal competent and demonstrates normal augmentation. augmentation. T/P Trunk is compressible. T/P Trunk is compressible. PTV is compressible. PTV is compressible. RT PerV is compressible. LT PerV is compressible. Hypoechoic, non vascular structure noted Rt Pop Fossa measuring 1.97cm x 1.51cm. Procedure This is a venous duplex using B-mode, color flow and spectral Doppler. Exam performed portable in patient room. A preliminary report was called and/or faxed to Patient's RN. VL/Venous Duplex US - Arya Extrem Interpretation Summary Deep veins of the lower extremities are bilaterally patent and compressible seg mentally. There is no evidence of deep vein thrombosis on either side. Valvular competence appears in tact within the proximal deep venous systems bilaterally. The great saphenous veins appear bila terally patent and compressible segmentally. A non-vascular, hypoechoic structure is noted in the right popliteal space, measuring 1.97 cm x 1.51 cm. This probably represents a popliteal cyst. Clinical correlation is advised. Ordering Physician: Paige Tirado Referring Physician: Javed Moyer Performed By: Nicole Artis, DARY, RVT
[2024-02-29 17:34] VITALS: BP 153/88; PULSE 87; RESP 18; TEMP 36.6; O2SAT 98
[2024-02-29 22:00] VITALS: RESP 15; O2SAT 98
[2024-02-29] MEDS: Mirtazapine 15 MG Tablet PO (22:09)
[2024-02-29] MEDS: Atorvastatin Calcium 40 MG Tablet PO (22:09)
[2024-02-29 22:13] VITALS: BMI 28.6
[2024-03-01 05:51] LABS: Hematocrit 35.6 % (40-54); Hemoglobin 12.7 g/dL (13.0-16.5); Mean Corp Hgb Conc 35.7 g/dL (32-36); Mean Corpuscular Hgb 30.6 pg (27.0-32.0); Mean Corpuscular Volume 85.8 fL (80-94); Mean Platelet Vol. 9.3 fl (6.2-12.0); Platelet Count 188 K/mm3 (150-450); RBC Distribution Width CV 12.7 % (11.6-14.6); Red Blood Count 4.15 M/mm3 (4.6-6.2); White Blood Count 5.6 K/mm3 (4.4-11.0)
[2024-03-01 06:00] VITALS: BP 152/83; PULSE 78; RESP 16; TEMP 37.2; O2SAT 97
[2024-03-01 06:22] LABS: Anion Gap 4 (5-15); BUN 16 mg/dL (7-18); BUN/Creat Ratio 19.4 RATIO (10-20); Calcium,Total 9.7 mg/dL (8.5-10.1); Chloride 107 mmol/L (98-107); Creatinine, Serum 0.82 mg/dL (0.70-1.30); EST Glomerular Filtration Rate 105 mL/min (>60); Est Glom Filt Rate - Afr Amer 127 mL/min (>60); Estimated Creatinine Clearance 120.66 ml/min; Glucose 107 mg/dL (74-106); Magnesium 1.8 mg/dL (1.6-2.6); Potassium 3.9 mmol/L (3.5-5.1); Sodium Level 137 mmol/L (136-145)
[2024-03-01] MEDS: amLODIPine 2.5 MG Tablet PO ×2 (08:51→10:51)
[2024-03-01] MEDS: metFORMIN (XR) 500 MG Tablet 1000 MG PO ×2 (08:51→16:27)
[2024-03-01] MEDS: Empagliflozin 25 MG Tablet PO (08:52)
[2024-03-01] MEDS: Lisinopril 40 MG Tablet PO (08:52)
[2024-03-01] MEDS: Aspirin E.C. 81 MG Tablet PO (08:52)
--- NOTE | 2024-03-01 09:51 | PCM.PROGNOTE ---
Subjective Subjective Afebrile VSS -blood pressure for the past 24 hours has ranged from 123/68 to 152/88. Heart rate is within normal limits. Maintaining appropriate oxygen saturation on RA Oral intake - FOOD good FLUIDS good Discussed with nursing - no problems that need addressed Reviewed the THERAPY notes Medication list reviewed. All lab drawn this morning was personally reviewed. White blood cell count is normal at 5.6. Hemoglobin is 12.7, down from 13.3 on 02/15/2024 ( I suspect this is due to better hydration. Platelets are within normal sodium is 137 and the potassium is 3.9. Creatinine today is 0.82, down from 1.05 on 02/15/2024. The BUN is 16, down from 25 on 02/15/2024. FBS is 107 today. Magnesium is normal at 1.8. Bilateral lower extremity venous Dopplers were negative for DVT...... no official read yet, prelim is no DVT. Fell asleep OK last night but, awoke at [facility] and then could not go back to sleep right away. Feeling tired today. Denies cephalgia, lightheadedness, chest pain, shortness of breath, cough, nausea/vomiting/abdominal pain, dysuria and calf tenderness. Still feeling down and somewhat depressed. Objective Data Objective Data Vital Signs: Vital Signs Temp Pulse Resp BP Pulse Ox O2 Del Method 98.9 F 78 16 152/83 H 97 Room Air 03/01/24 06:00 03/01/24 06:00 03/01/24 06:00 03/01/24 06:00 03/01/24 06:00 03/01/24 06:00 Oxygen Delivery Method Room Air Weight: 199 lb 11.821 oz Body Mass Index (BMI) 28.6 Intake & Output: Intake and Output for Last 24 Hours 02/28/24 02/29/24 03/01/24 23:59 23:59 23:59 Intake Total 2770 / 2770 1670 / 1670 200 / 200 Output Total 900 / 900 1500 / 1500 Balance 1870 / 1870 170 / 170 200 / 200 Lab / Micro Data 03/01/24 05:41 03/01/24 05:41 Labs: Laboratory Results - last 24 hr 03/01/24 05:41: WBC 5.6, RBC 4.15 L, Hgb 12.7 L, Hct 35.6 L, MCV 85.8, MCH 30.6, MCHC 35.7, RDW Std Deviation 39.0, RDW Coeff of Roshni 12.7, Plt Count 188, MPV 9.3, Sodium 137, Potassium 3.9, Chloride 107, Carbon Dioxide 26.0, Anion Gap 4 L, BUN 16, Creatinine 0.82, Estim Creat Clear Calc 120.66, Est GFR (MDRD) Af Amer 127, Est GFR (MDRD) Non-Af 105, BUN/Creatinine Ratio 19.4, Glucose 107 H, Calcium 9.7, Magnesium 1.8 Physical Exam Const alert and oriented x3 General Appearance: cooperative Resp normal respiratory effort, normal air movement and clear to auscultation bilaterally Cardio regular rate, regular rhythm and no rub Cardio Narrative: No ectopy GI normal to inspection, nondistended, normoactive bowel sounds, soft to palpation, non-tender and non-distended Extremity General Extremity: Negative for edema Skin Rashes: no rashes Psych thought process normal and cooperative Psych Narrative: Frustrated about his disability. Asked about his [facility] paperwork. Mood & Affect: depressed and flat affect Assessment & Plan Assessment/Plan (1) Insomnia: QUALIFIERS: Insomnia type: adjustment Qualified Code(s): F51.02 - Adjustment insomnia (2) Debility: (3) Right-sided lacunar stroke: (4) Left hemiparesis: (5) Diabetes mellitus, type 2: QUALIFIERS: Diabetes mellitus longshore equipment operator insulin use: without longshore equipment operator use Diabetes mellitus complication status: with neurologic complications Diabetes mellitus complication detail: with polyneuropathy Qualified Code(s): E11.42 - Type 2 diabetes mellitus with diabetic polyneuropathy (6) Hyperlipidemia: QUALIFIERS: Hyperlipidemia type: unspecified Qualified Code(s): E78.5 - Hyperlipidemia, unspecified (7) Essential (primary) hypertension: (8) Diabetic polyneuropathy: QUALIFIERS: Diabetes mellitus type: type 2 Qualified Code(s): E11.42 - Type 2 diabetes mellitus with diabetic polyneuropathy (9) Depression as late effect of cerebrovascular accident (CVA): (10) Right calf pain: PLAN: Plan 1. Continue therapy 2. Increase Norvasc to 5 mg p.o. daily. Goal blood pressures less than 130/80. 3. Continue aspirin 81 mg daily. 4. Add a PRN dose of Ambien at HS if Remeron is not effective........he has only received 1 dose so far. Charges/Coding Visit Charges Inpatient E&M: 32994 Subs Hosp L1
[2024-03-01 10:25] VITALS: BMI 28.6
[2024-03-01 17:11] VITALS: BP 149/86; PULSE 98; RESP 16; TEMP 36.6; O2SAT 99
[2024-03-01] MEDS: Atorvastatin Calcium 40 MG Tablet PO (19:58)
[2024-03-01] MEDS: Mirtazapine 15 MG Tablet PO (19:58)
[2024-03-01 20:04] VITALS: BMI 28.6
[2024-03-01 22:00] VITALS: PULSE 98; RESP 16; O2SAT 97
[2024-03-02 05:34] VITALS: BP 138/86; PULSE 96; RESP 17; TEMP 37; O2SAT 97
[2024-03-02] MEDS: metFORMIN (XR) 500 MG Tablet 1000 MG PO ×2 (08:03→16:51)
[2024-03-02] MEDS: Lisinopril 40 MG Tablet PO (08:03)
[2024-03-02] MEDS: amLODIPine 5 MG Tablet PO (08:03)
[2024-03-02] MEDS: Empagliflozin 25 MG Tablet PO (08:04)
[2024-03-02] MEDS: Aspirin E.C. 81 MG Tablet PO (08:04)
[2024-03-02 10:52] VITALS: BMI 28.6
[2024-03-02 17:48] VITALS: BP 148/82; PULSE 91; RESP 17; TEMP 36.9; O2SAT 99
[2024-03-02] MEDS: Atorvastatin Calcium 40 MG Tablet PO (19:58)
[2024-03-02] MEDS: Mirtazapine 15 MG Tablet PO (19:58)
[2024-03-02 20:00] VITALS: PULSE 91; RESP 17; O2SAT 99; BMI 28.6
[2024-03-03 06:00] VITALS: BP 137/79; PULSE 76; RESP 15; TEMP 36.6; O2SAT 93
[2024-03-03] MEDS: amLODIPine 5 MG Tablet PO (09:21)
[2024-03-03] MEDS: metFORMIN (XR) 500 MG Tablet 1000 MG PO ×2 (09:21→17:05)
[2024-03-03] MEDS: Empagliflozin 25 MG Tablet PO (09:21)
[2024-03-03] MEDS: Lisinopril 40 MG Tablet PO (09:21)
[2024-03-03] MEDS: Aspirin E.C. 81 MG Tablet PO (09:21)
--- NOTE | 2024-03-03 10:24 | CASEMGMT ---
Social Work SW spoke pt at bedside to discuss readiness for DC. Pt expressed he is ready to DC home; his mental health is starting to decline being admitted. SW expressed understanding and provided empathy. Pt feels he will be okay at home alone. SW offered to discuss with IDT and at Team meeting this afternoon to set DC date. Tentatively set DC for 03/06 and dtr could transport. Pt is requesting outpatient therapy at [facility] now. SW to change the order. No DME needs. SW to finalize DC plans at Team. Pt appreciative. Yoli Albert, BAGGER AND STOCK HANDLER HELPER RABBIT FANCIER
--- NOTE | 2024-03-03 10:27 | EX.PCM.PN.RE ---
Subjective Subjective Jimmy was seen on team rounds today. His participated by phone. All questions were answered to their satisfaction. Afebrile VSS -blood pressure this morning was 137/79. Amlodipine was increased to 5 mg daily yesterday. Maintaining appropriate oxygen saturation on RA Oral intake - FOOD good FLUIDS good Discussed with nursing - no problems that need addressed Reviewed the THERAPY notes Medication list reviewed. He is complaining to the nurses that He is feeling tired in the morning. He denied feeling tired to me but, did c/o feeling bored and somewhat depressed. Sleeping well at night with the addition of Remeron to the drug regimen. Will denies chest pain, lightheadedness, cephalgia, shortness of breath, cough, nausea/vomiting/abdominal pain, dysuria and calf tenderness. Objective Data Objective Data Vital Signs: Vital Signs Temp Pulse Resp BP Pulse Ox O2 Del Method 97.9 F 76 15 137/79 H 93 Room Air 03/03/24 06:00 03/03/24 06:00 03/03/24 06:00 03/03/24 06:00 03/03/24 06:00 03/03/24 06:00 Oxygen Delivery Method Room Air Weight: 199 lb 11.821 oz Body Mass Index (BMI) 28.6 Intake & Output: Intake and Output for Last 24 Hours 03/01/24 03/02/24 03/03/24 23:59 23:59 23:59 Intake Total 1910 / 2210 2090 / 2090 240 / 240 Output Total 1780 / 2080 600 / 600 Balance 130 / 130 1490 / 1490 240 / 240 Lab / Micro Data 03/01/24 05:41 03/01/24 05:41 Indicators for Scoring Admitted with or Primary Diagnosis of CVA/Stroke: Yes Hx of CVA/Stroke: Yes Modified [place] Score MRS Score at time of Evaluation: 4-Moderate/severe disability Physical Exam Const alert and oriented x3 General Appearance: cooperative Resp normal respiratory effort, normal air movement and clear to auscultation bilaterally Cardio regular rate, regular rhythm and no rub Cardio Narrative: No ectopy GI normal to inspection, nondistended, normoactive bowel sounds, soft to palpation, non-tender and non-distended Extremity General Extremity: Negative for edema Skin Rashes: no rashes Psych thought process normal and cooperative Psych Narrative: Frustrated about his disability. Asked about his FMLA paperwork. Mood & Affect: depressed and flat affect Assessment & Plan Assessment/Plan (1) Insomnia: QUALIFIERS: Insomnia type: adjustment Qualified Code(s): F51.02 - Adjustment insomnia (2) Debility: (3) Right-sided lacunar stroke: (4) Left hemiparesis: (5) Diabetes mellitus, type 2: QUALIFIERS: Diabetes mellitus chcf insulin use: without meterman use Diabetes mellitus complication status: with neurologic complications Diabetes mellitus complication detail: with polyneuropathy Qualified Code(s): E11.42 - Type 2 diabetes mellitus with diabetic polyneuropathy (6) Hyperlipidemia: QUALIFIERS: Hyperlipidemia type: unspecified Qualified Code(s): E78.5 - Hyperlipidemia, unspecified (7) Essential (primary) hypertension: (8) Diabetic polyneuropathy: QUALIFIERS: Diabetes mellitus type: type 2 Qualified Code(s): E11.42 - Type 2 diabetes mellitus with diabetic polyneuropathy (9) Depression as late effect of cerebrovascular accident (CVA): PLAN: Plan 1. Continue therapy 2. Continue Norvasc 5 mg p.o. daily. BP may improve at home.....I suspect he is having some upset about being bored and wanting to go home. 3. We have agreed on DC on Thursday this week. OP therapy at [place]. BP is close to being at goal......can fine tune the antihypertensives after DC 4. I recommended he consider some counseling for acute disability/stroke/depression. SW gave him a list of therapists to consider. 5. Meds to be faxed to [facility] in [place] 6. Will need to follow up with PCP, neurology and cardiology at DC 7. Needs follow up lipid and liver profile in about 2-4 weeks. Also will need a hypercoagulable W/U as OP post Dc to complete the W/U for stroke. GHas an appt with cardiology already scheduled. Referral to neurology completed today. Charges/Coding Visit Charges Inpatient E&M: 77778 Subs Hosp L2
[2024-03-03 13:34] VITALS: BMI 28.6
--- NOTE | 2024-03-03 13:41 | CASEMGMT ---
Addendum entered by Yoli Albert 03/03/24 13:47: inquired about driving. 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 NISSA provided resources. Pt agreeable. Dr will not restrict driving through the [facility] though. Original Note: Social Work IDT met with patient and conference call with for Team meeting. Discussed patient's progress in PT/OT/SN. Educated to [facility] insurance with NRD 03/04. IDT agreeable to setting DC date. Pt prefers DC 03/05 and can transport. discussed pt's post-stroke depression and started pt on Remeron, that pt is responding well to. recommended counseling at DC. NISSA provided pt with counseling resources. NISSA faxed referral to [facility] for PT/OT Plan: DC home alone, dtr and supportive, 03/05, [facility] PT/OT Yoli Albert, ARCHITECTURAL MODELER IMMIGRATION GUARD
[2024-03-03 18:00] VITALS: BP 134/80; PULSE 99; RESP 16; TEMP 36.8; O2SAT 95
[2024-03-03 19:50] VITALS: PULSE 99; RESP 16; O2SAT 99; BMI 28.6
[2024-03-03] MEDS: Atorvastatin Calcium 40 MG Tablet PO (19:51)
[2024-03-03] MEDS: Mirtazapine 15 MG Tablet PO (19:51)
--- NOTE | 2024-03-03 20:42 | NURSING ---
pt was noted to have a flat affect when clinical findings being completed, later pt rang to have staff come to the room to check his 30day event monitor that was beeping. monitor showed that the monitor was not attached to the pts skin. when staff told this to the pt, pt stated I'm not dealing with this tonight and took off the monitor and put it on the bedside table with agitation noted. staff questioned pt if every thing was ok and pt stated that he was fine but was send the monitor back tomorrow.
[2024-03-04 05:26] VITALS: BMI 28.9
[2024-03-04 05:29] VITALS: BP 146/88; PULSE 90; RESP 16; TEMP 36.8; O2SAT 94
[2024-03-04] MEDS: Aspirin E.C. 81 MG Tablet PO (09:28)
[2024-03-04] MEDS: Empagliflozin 25 MG Tablet PO (09:28)
[2024-03-04] MEDS: Lisinopril 40 MG Tablet PO (09:28)
[2024-03-04] MEDS: metFORMIN (XR) 500 MG Tablet 1000 MG PO ×2 (09:28→16:49)
[2024-03-04] MEDS: amLODIPine 5 MG Tablet PO (09:28)
--- NOTE | 2024-03-04 12:27 | PCM.DC ---
Discharge Instructions Diet Discharge Diet: Low fat / Low cholesterol and 2000 Calorie Control Diet Activity Discharge Activity: May Not Drive (A referral has been made to the drivers rehab program at [facility] in [place]. Prior to resuming driving I suggest you attend this program so they can make sure you are going to be safe to drive. We recommend this to all stroke patients. ) and - (use the cane when walking.......nadine if you are outside your house. ) May resume sexual activity in: No Restrictions Weight Bearing Status: Full weight bearing Additional Activity Instructions:: Make sure to do the exercises given to you by the therapist 1-2 times a day....at least 6 days a week Dressing / Incision Call your doctor if you observe: Fever of 101 or Higher, Shortness of breath, Dizziness, Fainting spells, Swelling in the ankles, Chest pain, Increased palpitations (irregular heartbeat), Calf discomfort, Uncontrolled pain and - (STROKE symptoms: facial droop, slurred speech, inability to get words out, weakness on 1 side of the body and not the other, numbness on 1 side of the body and not the other, inability to maintain your balance sitting or standing, vertigo. ) Follow Up Care When: appts are listed at the end of this document. Test Results: Test results from this visit will be discussed in further detail at your follow-up appointment, if applicable. Pending Tests Upon Discharge: none Discharge Plan Admission Admit Date/Time: 02/14/24 13:40 Primary Reason for Your Visit: Poststroke debility Attending Provider: Paige Tirado Primary Care Provider: Javed Moyer Consulting Providers: Giovanny Pérez Chi Instructions Patient Instructions: Patent Foramen [place], Controlling High Blood Pressure, Depression Affects Your Mind ..., Counseling for Depression, DASH Plan Eat Heart Healthy Food, Diabetes and High Blood Pressure Additional Instructions / Restrictions: 1. The goal for your BP is to get the numbers consistently < 130/80. You are not there yet, your BP is getting better with the addition of Amlodipine to you antihypertensive regimen I suspect anxiety/depression is contributing to the high BP's. This may improve when you are at home and less bored and frustrated. I suggest you get a BP cuff to have at home and check your BP a few times a day. Vary the times and keep a record to take with you on your next visit to your PCP and the neurologist. The meds can be fine tuned to get the CP under 130/80 when we see what the BP is going to do at home. 2. I have given you some printed Info about the PFO, hypertension and depression. Please read the handouts at your leisure. They have a lot of good information in them. 3. I really think you should get some psychotherapy for depression to discuss how this stroke is impacting your life. Antidepressants alone do not work as well as Medication + counselling. 4. Your goals to help prevent strokes going forward are to keep the BP < 130/80, keep the HGBA1C under 7 and keep the LDL (bad cholesterol < 70. No smoking and no no excessive alcohol intake. Regular exercise. 5. We think that the stroke is due to the PFO but, can not be sure yet. You have the event monitor in place to make sure you are not having periods of atrial fibrillation. We checked ultrasound of the veins in the legs and you have no blood clots. You should have some lab work done as an outpatient to make sure you do not have a hypercoagulable disorder........in people with hypercoagulable disorders the blood clots more easily than in a normal person......this can be inherited. Your PCP can order this or she/he could refer you to a screen tacker to order the tests and follow up on this. 6. You have done very well on rehab.......keep up the good work at home. If you or Yoli have any questions after leaving rehab please do not hesitate to call me. OFFICE: [phone] CELL: [phone] NURSES STATION ON REHAB: [phone] Discharge Orders/Prescriptions Prescriptions: New acetaminophen 325 mg Tablet 650 mg PO Q6H PRN PRN (Reason: Pain 1-10 Or Fever) Qty: 1 0RF amlodipine 5 mg Tablet 5 mg PO DAILY Qty: 30 0RF mirtazapine 15 mg Tablet 15 mg PO QHS Qty: 30 0RF lisinopril 40 mg Tablet 40 mg PO DAILY Qty: 30 0RF Jardiance 25 mg Tablet 25 mg PO DAILY Qty: 30 0RF metformin 1,000 mg tablet extended release 24hr 1,000 mg PO BID Qty: 60 0RF Continued atorvastatin 20 mg tablet 40 mg PO QHS Qty: 30 0RF clopidogrel 75 mg tablet 75 mg PO DAILY Qty: 30 0RF Discontinued aspirin [Adult Low Dose Aspirin] 81 mg tablet,delayed release (DR/EC) 81 mg PO DAILY dapagliflozin propanediol [Farxiga] 10 mg tablet 10 mg PO DAILY lisinopril 10 mg tablet 20 mg PO DAILY metformin 500 mg tablet extended release 24 hr 1,000 mg PO BID Rybelsus 7 mg tablet 7 mg PO DAILY Referrals / Follow Up: Risa Walsh [Other] - 04/04/24 1:30 pm [facility] [Other] (Referral sent. Office will call you. If you don't hear from them in 1 week call the office) Mary Richards PA-C [Non-Staff] - 03/14/24 10:45 am Disposition Disposition (needs filled in before D/C Order can be placed): Home, Self Care
--- NOTE | 2024-03-04 13:21 | EX.DISCHREH ---
Providers Date of Admission: 02/14/24 Date of Discharge: 03/05/24 Primary Care Physician: Dr. Javed Moyer, Reason For Visit: STROKE Diagnosis Discharge Diagnosis (1) Debility: Status: Acute Code(s): R53.81 - Other malaise Plan: Due to ischemic CVA (2) Right-sided lacunar stroke: Status: Acute Code(s): I63.81 - Other cerebral infarction due to occlusion or stenosis of small artery (3) Left hemiparesis: Status: Acute Code(s): G81.94 - Hemiplegia, unspecified affecting left nondominant side (4) Diabetes mellitus, type 2: Status: Chronic Code(s): E11.9 - Type 2 diabetes mellitus without complications Qualifiers: Diabetes mellitus complication detail: with polyneuropathy Diabetes mellitus complication status: with neurologic complications Diabetes mellitus long winder tender insulin use: without fpc use Qualified Code(s): E11.42 - Type 2 diabetes mellitus with diabetic polyneuropathy (5) Hyperlipidemia: Status: Chronic Code(s): E78.5 - Hyperlipidemia, unspecified Qualifiers: Hyperlipidemia type: unspecified Qualified Code(s): E78.5 - Hyperlipidemia, unspecified (6) Essential (primary) hypertension: Status: Chronic Code(s): I10 - Essential (primary) hypertension (7) Diabetic polyneuropathy: Status: Chronic Code(s): E11.42 - Type 2 diabetes mellitus with diabetic polyneuropathy Qualifiers: Diabetes mellitus type: type 2 Qualified Code(s): E11.42 - Type 2 diabetes mellitus with diabetic polyneuropathy (8) Depression as late effect of cerebrovascular accident (CVA): Status: Acute Code(s): I69.398 - Other sequelae of cerebral infarction; F06.31 - Mood disorder due to known physiological condition with depressive features (9) Insomnia: Status: Resolved Code(s): G47.00 - Insomnia, unspecified Qualifiers: Insomnia type: adjustment Qualified Code(s): F51.02 - Adjustment insomnia Plan: Resolved with the addition of Remeron to the drug regimen. (10) Patent foramen ovale: Status: Chronic Code(s): Q21.12 - Patent foramen ovale (11) Normochromic normocytic anemia: Status: Acute Code(s): D64.9 - Anemia, unspecified Plan: etiology? May be due to frequent blood draws. HGB was 13.3 at admission to rehab and 12.7 on 03/01/24. Normal MCV and normal RDW. Plan 1. DC home 03/05/24. Follow up appts scheduled for him 2. Continue Norvasc 5 mg p.o. daily. BP may improve at home.....I suspect he is having some upset about being bored and wanting to go home. 3. I recommended he consider some counseling for acute disability/stroke/depression. SW gave him a list of therapists to consider. 5. Meds faxed to [facility] in [place] 6. Needs follow up lipid and liver profile in about 2-4 weeks. Also will need a hypercoagulable W/U as OP post DC to complete the W/U for stroke. Venous US of the LE's negative for DVT. 7. Use a quad cane for ambulation, nadine when out in the community 8. Outpatient therapy Medications at Discharge Home Medications acetaminophen 325 mg tablet 650 mg (2 x 325 mg) PO Q6H PRN PRN Pain 1-10 Or Fever #1 TAB 03/04/24 amlodipine 5 mg tablet 5 mg PO DAILY #30 tabs 03/04/24 atorvastatin 20 mg tablet 40 mg (2 x 20 mg) PO QHS cholesterol #30 tabs 03/04/24 clopidogrel 75 mg tablet 75 mg PO DAILY stroke #30 tabs 03/04/24 empagliflozin 25 mg tablet (Jardiance) 25 mg PO DAILY #30 tabs 03/04/24 lisinopril 40 mg tablet 40 mg PO DAILY #30 tabs 03/04/24 metformin 1,000 mg tablet,extended release 24hr (osmotic) 1,000 mg PO BID #60 tabs 03/04/24 mirtazapine 15 mg tablet 15 mg PO QHS #30 tabs 03/04/24 Hospital Course Operations None Procedures - (30 day event monitor in place) Summary of Care Provided Minutes Spent on Discharge: 40 Hospital Course: Calos Meyers is a 49 YO male with a PMH of DM II, diabetic polyneuropathy, HTN and HLD who presented to [facility] emergency department on 02/06/2024 complaining of left arm and left leg weakness. A noncontrast CT of the brain showed a lacunar infarct. He was not a candidate for TNK since the infarct was already obvious on CT scan. CTA of the head and neck showed no significant stenosis and no aneurysms. MRI showed a right parietal lobe ischemic infarct. Transthoracic echocardiogram showed a patent foramen ovale and asymmetric basal septal hypertrophy. Both atria were of normal size and there were no wall motion abnormalities. The proximal ascending aorta was mildly dilated at 3.9 cm. Hemoglobin A1c was 6.1%. LDL was 62 with an HDL of 32 and triglycerides of 178 on 20 mg of Lipitor. The dose was increased to 40 mg, which is considered a high intensity statin. He was transferred to the acute inpt rehab unit at [facility] on 02/14/24 for 3 hours of therapy daily to restore function/independence at or near his level prior to the stroke. 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 An event monitor was placed prior to transfer to rehab. BL venous US's were done at [facility] to r/o LE DVT in light of PFO. He has not had a hypercoagulable W/U completed. this was deferred while at [facility] because he was on Lovenox for DVT prevention while on rehab. This can be done as an OP. A period of permissive hypertension was allowed initially on rehab but, BP remained > 130/80. He was started on Norvasc 2.5 mg in addition to the Lisinopril 40 mg he was on at the time of presentation to rehab. The dose was increased to 5 mg daily a few days prior to DC. Blood pressure for the 48 hours prior to discharge ranged from 134/82 149/86. I suspect it will come down at home because he was depressed, bored, frustrated at his deficits and anxious to go home the last few days. I recommended to Calos that he obtain a blood pressure monitor and check his blood pressure a few times a day at different times and keep a record which she will take to his next appointment with his PCP and to the neurologist. Calos developed insomnia and self admitted depression while on rehab. He was started on Remeron 15 mg at bedtime and the insomnia has resolved. I recommended he consider OP psychotherapy post DC to help him adjust to life after a stroke. Calos did well on rehab. At the time of discharge he is able to do 14 sit to stands not using his upper extremities to rise. He is able to complete a 6 inch curb step with a straight cane at standby assist and he is able to complete the same staff at contact-guard assist with no assistive device. He has ambulated with OT 90ft with a quad cane at mod I. He is supervision/set up with grooming, bathing, upper body dressing, lower body dressing and tub/shower transfer. He is mod I with toilet transfer/toileting and eating. Still having significant coordination difficulty with the left hand using a mouse and typing. Will was discharged home on 03/05/24 and will have OP PT/OT. Appts have been made for him to follow up with neurology, cardiology and PCP. Physical Exam Const alert, oriented x3 and no apparent distress Constitutional Narrative: more easily agitated than he was 1 week ago. General Appearance: cooperative and well kempt HEENT hearing grossly normal bilaterally Head and Scalp: normocephalic and atraumatic Mouth: moist mucous membranes abnormal Eyes PERRL, EOMs intact bilaterally, conjunctivae normal and no scleral icterus Eyes Narrative: No discharge from the eyes. No mattering of the eyelashes. No visual field cuts. Neck no JVD, thyroid normal, No nodes and no carotid bruits Chest Chest: symmetrical chest wall rise Resp normal respiratory effort, normal air movement and clear to auscultation bilaterally Effort and Inspection: able to speak in complete sentences Cardio regular rate, regular rhythm, no murmurs, no rub and no gallops Cardio Narrative: No ectopy GI normal to inspection, nondistended, normoactive bowel sounds, soft to palpation, non-tender and non-distended GI Narrative: No abdominal bruits Extremity no calf tenderness and no pedal edema General Extremity: Negative for edema Peripheral Pulses: Yes pulses 2+ throughout Skin Rashes: no rashes Neuro oriented x3, CN's II-XII intact bilaterally and moves all extremities Neuro Narrative: Still with Left side weakness although improved. Having coordination problems with the LUE when using a mouse and typing which are things that he must do all the time at his job. No ataxia. No extinction. No visual field cuts. No facial asymmetry. No tremors. Psych thought process normal and cooperative Psych Narrative: Frustrated about his disability. Moire irritable recently.....I suspect this may improve post DC and he is anxious to get home. Sleeping well now with Remeron 15 mg Q HS. Mood & Affect: depressed and flat affect Weight / BMI Weight Weight: 201 lb 8.04 oz Body Mass Index (BMI) 28.9 ABG / Lab / Microbiology Data 03/01/24 05:41 03/01/24 05:41 Indicators for Scoring Admitted with or Primary Diagnosis of CVA/Stroke: Yes Hx of CVA/Stroke: Yes Modified [place] Score MRS Score at time of Evaluation: 2-Slight disability (Down from 4 at admission to rehab) NIHSS NIHSS 1a. Level of Consciousness: Alert; keenly responsive 1b. LOC Questions: Answers BOTH questions correctly. 2. Best Gaze: Normal 3. Visual: No visual loss 4. Facial Palsy: Normal symmetrical movements 5a. Left Arm: No drift; arm holds 90 (or 45) degrees for full 10 seconds 5b. Right Arm: No drift; arm holds 90 (or 45) degrees for full 10 seconds 6a. Left Leg: No drift; leg holds 30-degree position for full 5 seconds 6b. Right Leg: No drift; leg holds 30-degree position for full 5 seconds 7. Limb Ataxia: Absent 8. Sensory: Aala-zc-uanutied sensory loss; 9. Best Language: No aphasia; normal 10. Dysarthria: Normal 11. Extinction and Inattention: No abnormality Total: 1 Stroke Questions Stroke Team Activated: No D/C Instructions Discharge Diet: Low fat / Low cholesterol and 2000 Calorie Control Diet May resume sexual activity in: No Restrictions Weight Bearing Status: Full weight bearing Additional Activity Instructions: Make sure to do the exercises given to you by the therapist 1-2 times a day....at least 6 days a week Call your doctor if you observe: Fever of 101 or Higher, Shortness of breath, Dizziness, Fainting spells, Swelling in the ankles, Chest pain, Increased palpitations (irregular heartbeat), Calf discomfort, Uncontrolled pain and - (STROKE symptoms: facial droop, slurred speech, inability to get words out, weakness on 1 side of the body and not the other, numbness on 1 side of the body and not the other, inability to maintain your balance sitting or standing, vertigo. ) Pending Tests Upon Discharge: none When: appts are listed at the end of this document. Meaningful Use Info Meaningful Use Meaningful Use Diagnoses (Choose all that apply): Ischemic CVA CVA Therapy Assessed for PT,OT and/or ST?: Yes Ischemic Stroke Antithrombotic order at d/c?: Yes Dx of Atrial fib/flutter?: No Anticoagulant at discharge?: No Reason anticoagulant not ordered: Treatment not Indicated Statin Dosing Therapy Reference: STATIN DOSE THERAPY REFERENCE: * Patients > 75 years receive moderate or high dose statin therapy. * Patients 75 years or YOUNGER should receive HIGH intensity statin dose unless contraindicated. You will be required to document reason for non-treatment if statin daily dose does not meet guidelines. HIGH DOSE STATIN THERAPY DAILY Atorvastatin > than or = to 40 mg Rosuvastatin > than or = to 20 mg Amlodipine + Atorvastatin > than or = to 2.5/40 mg Ezetimibe + Simvastatin 10/80 mg Simvastatin 80mg Statins at discharge?: Yes If patient is 75 or younger, pt will be discharged on HIGH intensity statin.: Yes Primary Dx Acute Ischemic CVA?: Yes IV thrombolytic ordered during stay?: No Reason IV thrombolytic not ordered: Procedure not Indicated Discharge Plan Admission Admit Date/Time: 02/14/24 13:40 Primary Reason for Your Visit: Poststroke debility Attending Provider: Paige Tirado Primary Care Provider: Javed Moyer Consulting Providers: Giovanny Pérez Chi Instructions Patient Instructions: Patent Foramen [place], Controlling High Blood Pressure, Depression Affects Your Mind ..., Counseling for Depression, DASH Plan Eat Heart Healthy Food, Diabetes and High Blood Pressure Additional Instructions / Restrictions: 1. The goal for your BP is to get the numbers consistently < 130/80. You are not there yet, your BP is getting better with the addition of Amlodipine to you antihypertensive regimen I suspect anxiety/depression is contributing to the high BP's. This may improve when you are at home and less bored and frustrated. I suggest you get a BP cuff to have at home and check your BP a few times a day. Vary the times and keep a record to take with you on your next visit to your PCP and the neurologist. The meds can be fine tuned to get the CP under 130/80 when we see what the BP is going to do at home. 2. I have given you some printed Info about the PFO, hypertension and depression. Please read the handouts at your leisure. They have a lot of good information in them. 3. I really think you should get some psychotherapy for depression to discuss how this stroke is impacting your life. Antidepressants alone do not work as well as Medication + counselling. 4. Your goals to help prevent strokes going forward are to keep the BP < 130/80, keep the HGBA1C under 7 and keep the LDL (bad cholesterol < 70. No smoking and no no excessive alcohol intake. Regular exercise. 5. We think that the stroke is due to the PFO but, can not be sure yet. You have the event monitor in place to make sure you are not having periods of atrial fibrillation. We checked ultrasound of the veins in the legs and you have no blood clots. You should have some lab work done as an outpatient to make sure you do not have a hypercoagulable disorder........in people with hypercoagulable disorders the blood clots more easily than in a normal person......this can be inherited. Your PCP can order this or she/he could refer you to a fruit and vegetable inspector to order the tests and follow up on this. 6. You have done very well on rehab.......keep up the good work at home. If you or Yoli have any questions after leaving rehab please do not hesitate to call me. OFFICE: [phone] CELL: [phone] NURSES STATION ON REHAB: [phone] Discharge Orders/Prescriptions Prescriptions: New acetaminophen 325 mg Tablet 650 mg PO Q6H PRN PRN (Reason: Pain 1-10 Or Fever) Qty: 1 0RF amlodipine 5 mg Tablet 5 mg PO DAILY Qty: 30 0RF mirtazapine 15 mg Tablet 15 mg PO QHS Qty: 30 0RF lisinopril 40 mg Tablet 40 mg PO DAILY Qty: 30 0RF Jardiance 25 mg Tablet 25 mg PO DAILY Qty: 30 0RF metformin 1,000 mg tablet extended release 24hr 1,000 mg PO BID Qty: 60 0RF Continued atorvastatin 20 mg tablet 40 mg PO QHS Qty: 30 0RF clopidogrel 75 mg tablet 75 mg PO DAILY Qty: 30 0RF Discontinued aspirin [Adult Low Dose Aspirin] 81 mg tablet,delayed release (DR/EC) 81 mg PO DAILY dapagliflozin propanediol [Farxiga] 10 mg tablet 10 mg PO DAILY lisinopril 10 mg tablet 20 mg PO DAILY metformin 500 mg tablet extended release 24 hr 1,000 mg PO BID Rybelsus 7 mg tablet 7 mg PO DAILY Referrals / Follow Up: Risa Walsh [Other] - 04/04/24 1:30 pm Shimon Cardona[facility] [Other] - 03/23/24 10:00 am Mary Richards PA-C [Non-Staff] - 03/14/24 10:45 am Disposition Disposition (needs filled in before D/C Order can be placed): Home, Self Care Charges/Coding Visit Charges Inpatient E&M: 96596 Disch Hosp >30min
[2024-03-04 17:00] VITALS: BMI 28.9
[2024-03-04 17:44] VITALS: BP 148/88; PULSE 95; RESP 16; TEMP 37.2; O2SAT 97
[2024-03-04 19:50] VITALS: PULSE 95; RESP 16; O2SAT 97; BMI 28.9
[2024-03-04] MEDS: Atorvastatin Calcium 40 MG Tablet PO (19:53)
[2024-03-04] MEDS: Mirtazapine 15 MG Tablet PO (19:53)
[2024-03-05 06:00] VITALS: BP 137/90; PULSE 87; RESP 16; TEMP 36.8; O2SAT 99
[2024-03-05] MEDS: Empagliflozin 25 MG Tablet PO (08:29)
[2024-03-05] MEDS: Aspirin E.C. 81 MG Tablet PO (08:29)
[2024-03-05] MEDS: metFORMIN (XR) 500 MG Tablet 1000 MG PO (08:29)
[2024-03-05] MEDS: amLODIPine 5 MG Tablet PO ×2 (08:30→08:33)
[2024-03-05] MEDS: Lisinopril 40 MG Tablet PO (08:30)
[2024-03-05 12:00] VITALS: BMI 28.9
--- NOTE | 2024-03-05 12:30 | NURSING ---
and patient verbalized understanding to DC instructions and discharged at this time.
== END 2024-03-05 12:30 | disposition home or self-care (01) | DRG 57 ==
PROVIDERS: Admitting Provider Family Medicine Geriatric Medicine; PCP Family Medicine; Visit Provider Internal Medicine
DX: I69.354 Hemiplegia and hemiparesis following cerebral infarction affecting left non-dominant side (principal); Q21.12 Patent foramen ovale; E11.42 Type 2 diabetes mellitus with diabetic polyneuropathy; I77.810 Thoracic aortic ectasia; I10 Essential (primary) hypertension; F06.31 Mood disorder due to known physiological condition with depressive features; I69.398 Other sequelae of cerebral infarction; E11.65 Type 2 diabetes mellitus with hyperglycemia; E78.5 Hyperlipidemia, unspecified; Z79.84 Long term (current) use of oral hypoglycemic drugs; Z79.82 Long term (current) use of aspirin; F51.02 Adjustment insomnia; Z79.899 Other long term (current) drug therapy; Z79.02 Long term (current) use of antithrombotics/antiplatelets
CPT/HCPCS: 36415; 80048; 80053; 82962; 83735; 84100; 85027; 92523; 93970; 94668; 97110; 97112; 97116; 97162; 97166; 97530; 97535; 97802; 97803